=== PATIENT | female | born 1960 | race Caucasian/White ===

== ENCOUNTER 2020-05-29 18:59 | Emergency (ER) | payer BC, OTHER ==
[2020-05-29 19:58] LABS: Absolute Lymphocytes (CBC) 1.8 K/uL (0.7-4.9); Basophils % 0.8 % (0-1.3); Hematocrit 36.9 % (36.0-45.0); Lymphocytes % 22.1 % (15.3-44.8); MPV 7.4 fL (7.6-11.3); RBC Red Blood Cell Count 4.15 M/uL (3.86-4.86)
[2020-05-29 20:00] LABS: ALT/SGPT 20 U/L (12-78); AST/SGOT 26 U/L (15-37); Albumin 3.4 g/dL (3.4-5.0); Alkaline Phosphatase 93 U/L (45-117); BUN Blood Urea Nitrogen 7 mg/dL (7-18); Bicarbonate 22 mmol/L (21-32); Bilirubin Direct < 0.1 mg/dL (0-0.2); Bilirubin Total 0.4 mg/dL (0.2-1.0); Glucose Level 85 mg/dL (74-106); Magnesium 1.9 mg/dL (1.8-2.4); NT PRO-BNP 110 pg/mL (<125); Potassium 3.7 mmol/L (3.5-5.1); Protein, Total 7.9 g/dL (6.4-8.2); Sodium Level 129 mmol/L (136-145); Troponin (Emerg Dept Use Only) < 0.02 ng/mL (0.0-0.045)
[2020-05-29 20:14] LABS: Urine Blood NEGATIVE (NEG); Urine Glucose NEGATIVE (NEG); Urine Protein NEGATIVE (NEG); Urine Specific Gravity 1.015 (1.005-1.030)
--- NOTE | 2020-05-29 20:35 | RAD REPORT ---
EXAM DESCRIPTION: CT - Head Brain Wo Cont - 05/29/2020 8:12 pm CLINICAL HISTORY: Left-sided weakness COMPARISON: None TECHNIQUE: Computed axial tomography of the head was obtained. IV contrast was not requested. All CT scans are performed using dose optimization technique as appropriate and may include automated exposure control or mA/KV adjustment according to patient size. FINDINGS: A 16 millimeter isodense structure is present within the region of the left internal capsu le. There is a large amount of surrounding vasogenic edema which extends into the left aspect of the midbrain. Shift of midline structures 6 millimeters to the right is present. No hydrocephalus. No intracranial bleed Fluid within the sinuses/ mastoids is not seen. IMPRESSION: 16 millimeter isodense structure left internal capsule suspicious for neoplasm. A lung m etastasis is considered most likely. There is a large amount of surrounding vasogenic edema with shif t of the midline structures 6 millimeters to the right Further evaluation with an enhanced MRI is recommended.
[2020-05-29] MEDS ORDERED: LEVETIRACETAM 500 MG/5 ML VIAL IV ONE (21:06)
[2020-05-29] MEDS ORDERED: dexAMETHasone 10 MG/ML VIAL ONE (21:06)
[2020-05-29] MEDS ORDERED: NA CHLORIDE 0.9% 250 ML ONE (21:06)
--- NOTE | 2020-05-29 21:09 | RAD REPORT ---
EXAM DESCRIPTION: Ana Single View05/29/2020 8:11 pm CLINICAL HISTORY: sob COMPARISON: none FINDINGS: A 2 centimeter right basilar opacity The left lung appears clear of acute infiltrate. The heart is normal size IMPRESSION: 8 centimeter right basilar opacity probably a mass such as bronchogenic carcinoma. Less likely this represents pneumonia and can be followed on subsequent imaging
--- NOTE | 2020-05-29 21:58 | ER ---
Nurse's Notes [facility] Name: Emily Ly Age: 60 yrs Sex: Female : 1960 Arrival Date: 05/29/2020 Time: 19:00 Bed 24 Private MD: Diagnosis: Cerebral edema;Lung mass Presentation: 05/29 19:01 Chief complaint: Patient states: "It started a few weeks ago. I just feel weak.". ss Coronavirus screen: Client denies travel out of the [place] in the last 14 days. At this time, the client does not indicate any symptoms associated with coronavirus-19. Ebola Screen: Patient denies exposure to infectious person. Patient denies travel to an Ebola-affected area in the 21 days before illness onset. Initial Sepsis Screen: Does the patient meet any 2 criteria? No. Patient's initial sepsis screen is negative. Does the patient have a suspected source of infection? No. Patient's initial sepsis screen is negative. Risk Assessment: Do you want to hurt yourself or someone else? Patient reports no desire to harm self or others. Onset of symptoms is unknown. 19:01 Method Of Arrival: Ambulatory ss 19:01 Acuity: DIOGO 3 ss Historical: - Allergies: 19:02 No Known Allergies; ss - Home Meds: 19:02 None [Active]; ss - PMHx: 19:02 Hypertension; ss - Immunization history:: Adult Immunizations up to date. - Social history:: Smoking status: Patient reports the use of cigarette tobacco products, smokes two packs cigarettes per day. Screenin:05 Fall Risk IV access (20 points). Total Ramos Fall Scale indicates No Risk (0-24 pts). rr5 20:07 Abuse screen: Denies threats or abuse. Denies injuries from another. Nutritional rr5 screening: No deficits noted. Tuberculosis screening: No symptoms or risk factors identified. Assessment: 19:15 General: Appears in no apparent distress. uncomfortable, Behavior is calm, cooperative, rr5 appropriate for age. 19:15 Pain: Denies pain. Neuro: Level of Consciousness is awake, alert, obeys commands, rr5 Oriented to person, place, time, situation, Food Mixer Assembler are equal bilaterally Moves all extremities. Full function Gait is steady, Speech is normal, Pupils are PERRLA, mild right side facial droop. Reports weakness in right arm generalized body weakness specially on the right. Cardiovascular: Capillary refill < 3 seconds Patient's skin is warm and dry. Respiratory: Airway is patent Respiratory effort is even, unlabored, Respiratory pattern is regular, symmetrical. GI: No signs and/or symptoms were reported involving the gastrointestinal system. : No signs and/or symptoms were reported regarding the genitourinary system. EENT: No signs and/or symptoms were reported regarding the EENT system. Derm: Skin is intact, is healthy with good turgor, Skin temperature is warm. Musculoskeletal: Capillary refill < 3 seconds, Reports weakness in general body weakness. 20:00 Reassessment: patient found on the ground sitting position urine all over the floor. as rr5 verbalized by the patient she wants to pee. GCS 15/15, no open wound noted. ED provider informed with order made and carried out. 20:26 Reassessment: Patient appears in no apparent distress at this time. Patient is alert, rr5 oriented x 3, equal unlabored respirations, skin warm/dry/pink. awaiting for CT result. 21:14 Reassessment: Patient appears in no apparent distress at this time. Patient is alert, rr5 oriented x 3, equal unlabored respirations, skin warm/dry/pink. ED provider reassess and talked to patient and family member for the plan of care and results of the work up. 22:35 Reassessment: Patient appears in no apparent distress at this time. Patient is alert, rr5 oriented x 3, equal unlabored respirations, skin warm/dry/pink. awaiting for acceptance from [facility]. call made they responded to call back after 15 minutes. 23:17 Reassessment: Patient appears in no apparent distress at this time. Patient is alert, rr5 oriented x 3, equal unlabored respirations, skin warm/dry/pink. endorsed to [facility] awake alert vitally stable, no complaints made. Vital Signs: 19:02 Pulse 86; Resp 16; Temp 98.1(O); Pulse Ox 96% on R/A; Weight 62.6 kg; Height 5 ft. 6 ss in. (167.64 cm); Pain 0/10; 19:04 BP 190 / 106; ss 19:20 BP 161 / 99; Pulse 77; Resp 16; Pulse Ox 100% ; rr5 20:00 BP 174 / 104; Pulse 87; Resp 19; Pulse Ox 100% ; rr5 21:15 BP 161 / 96; Pulse 82; Resp 17; Pulse Ox 97% ; rr5 21:58 BP 160 / 89; Pulse 77; Resp 19; Temp 98; Pulse Ox 99% ; rr5 23:17 BP 135 / 86; Pulse 70; Resp 16; Pulse Ox 99% ; rr5 19:02 Body Mass Index 22.27 (62.60 kg, 167.64 cm) ss Erik Coma Score: 19:20 Eye Response: spontaneous(4). Verbal Response: oriented(5). Motor Response: obeys rr5 commands(6). Total: 15. 20:00 Eye Response: spontaneous(4). Verbal Response: oriented(5). Motor Response: obeys rr5 commands(6). Total: 15. 21:15 Eye Response: spontaneous(4). Verbal Response: oriented(5). Motor Response: obeys rr5 commands(6). Total: 15. 22:04 Eye Response: spontaneous(4). Verbal Response: oriented(5). Motor Response: obeys rr5 commands(6). Total: 15. 23:17 Eye Response: spontaneous(4). Verbal Response: oriented(5). Motor Response: obeys rr5 commands(6). Total: 15. ED Course: 19:00 Patient arrived in ED. ss 19:02 Triage completed. ss 19:02 Arm band placed on right wrist. ss 19:18 Sam Ramirez, RN is Primary Nurse. rr5 19:20 Patient has correct armband on for positive identification. Placed in gown. Bed in low rr5 position. Call light in reach. Side rails up X2. telemetry monitor on. Pulse ox on. NIBP on. 19:20 Inserted saline lock: 20 gauge in left forearm, using aseptic technique. Blood rr5 collected. 19:21 Paulino Thomas MD is Attending Physician. tw4 19:40 EKG done, by ED staff, reviewed by Paulino Thomas MD. rr5 20:11 XRAY Chest (1 view) In Process Unspecified. EDMS 20:12 CT Head Brain wo Cont In Process Unspecified. EDMS 21:00 Initiated transfer with Ying Sung at [facility]. Ying also spoke with Dr. betty Thomas regarding the patients diagnosis. 21:36 Ying Sung called back with their Neuro Melon Packer on the line to speak to Dr. betty Thomas. 21:48 Dr. Rees called to consult with Dr. Thomas regarding the patients case. tt3 22:09 Ying Sung RN, gave admin approval. The patient is going to [facility] Room tt3 [id number]. The patient is to go to the ER to register then will be directed to the room. Dr. Bond is the accepting physician. Report to be called to . Face sheet faxed to per Ying Sung' request. 23:18 No provider procedures requiring assistance completed. Patient transferred, IV remains rr5 in place. intact, No redness/swelling at site. Administered Medications: 21:05 Drug: Decadron - Dexamethasone 10 mg Route: IVP; Site: left forearm; rr5 22:05 Follow up: Response: No adverse reaction rr5 21:06 Drug: Keppra 1000 mg Route: IV; Rate: calculated rate; Site: left forearm; rr5 22:00 Follow up: Response: No adverse reaction; IV Status: Completed infusion rr5 Output: 19:45 Urine: 300ml (Voided); Total: 300ml. rr5 20:40 Urine: 250ml (Voided); Total: 550ml. rr5 21:32 Urine: 300ml (Voided); Total: 850ml. rr5 22:04 Urine: 200ml (Voided); Total: 1050ml. rr5 Outcome: 21:58 ER care complete, transfer ordered by . tw4 23:18 Transferred by ground EMS to [facility], Transfer form completed. rr5 23:18 Condition: stable 23:18 Instructed on the need for transfer. 23:19 Patient left the ED. rr5 Signatures: Dispatcher [employer] EDToyin Lozano RN RN ss Wadley, Terrence, MD MD tw4 Sam Ramirez RN RN rr5 Eduardo Cameron tt3 Corrections: (The following items were deleted from the chart) 20:26 19:40 Reassessment: patient found on the ground sitting position urine all over the rr5 floor. as verbalized by the patient she wants to pee. GCS , no open wound noted. ED provider informed rr5
--- NOTE | 2020-05-29 21:59 | EDPHYS ---
Physician Documentation [facility] Name: Emily Ly Age: 60 yrs Sex: Female : 1960 Arrival Date: 05/29/2020 Time: 19:00 Bed 24 Private MD: ED Physician Paulino Thomas HPI: 05/29 21:00 This 60 yrs old Female presents to ER via Ambulatory with complaints of tw4 General Weakness. Historical: - Allergies: 19:02 No Known Allergies; ss - Home Meds: 19:02 None [Active]; ss - PMHx: 19:02 Hypertension; ss - Immunization history:: Adult Immunizations up to date. - Social history:: Smoking status: Patient reports the use of cigarette tobacco products, smokes two packs cigarettes per day. ROS: 22:05 Constitutional: Negative for fever, chills, and weight loss, Eyes: Negative for injury, tw4 pain, redness, and discharge, Cardiovascular: Negative for chest pain, palpitations, and edema, Respiratory: Negative for shortness of breath, cough, wheezing, and pleuritic chest pain, Abdomen/GI: Negative for abdominal pain, nausea, vomiting, diarrhea, and constipation, Back: Negative for injury and pain, MS/Extremity: Negative for injury and deformity, Skin: Negative for injury, rash, and discoloration. Exam: 22:09 Radiologist reports: cerebral edema with midline shift tw4 22:09 Constitutional: This is a well developed, well nourished patient who is awake, alert, and in no acute distress. Head/Face: Normocephalic, atraumatic. Chest/axilla: Normal chest wall appearance and motion. Nontender with no deformity. No lesions are appreciated. Cardiovascular: Regular rate and rhythm with a normal S1 and S2. No gallops, murmurs, or rubs. Normal PMI, no JVD. No pulse deficits. Respiratory: Lungs have equal breath sounds bilaterally, clear to auscultation and percussion. No rales, rhonchi or wheezes noted. No increased work of breathing, no retractions or nasal flaring. Abdomen/GI: Soft, non-tender, with normal bowel sounds. No distension or tympany. No guarding or rebound. No evidence of tenderness throughout. 22:09 Skin: Warm, dry with normal turgor. Normal color with no rashes, no lesions, and no evidence of cellulitis. MS/ Extremity: Pulses equal, no cyanosis. Neurovascular intact. Full, normal range of motion. Neuro: Awake and alert, GCS 15, oriented to person, place, time, and situation. Cranial nerves II-XII grossly intact. Motor strength 5/5 in all extremities. Sensory grossly intact. Cerebellar exam normal. Normal gait. 22:09 Constitutional: The patient appears in no acute distress. 22:09 Head/face: Noted is Vital Signs: 19:02 Pulse 86; Resp 16; Temp 98.1(O); Pulse Ox 96% on R/A; Weight 62.6 kg; Height 5 ft. 6 ss in. (167.64 cm); Pain 0/10; 19:04 BP 190 / 106; ss 19:20 BP 161 / 99; Pulse 77; Resp 16; Pulse Ox 100% ; rr5 20:00 BP 174 / 104; Pulse 87; Resp 19; Pulse Ox 100% ; rr5 21:15 BP 161 / 96; Pulse 82; Resp 17; Pulse Ox 97% ; rr5 21:58 BP 160 / 89; Pulse 77; Resp 19; Temp 98; Pulse Ox 99% ; rr5 23:17 BP 135 / 86; Pulse 70; Resp 16; Pulse Ox 99% ; rr5 19:02 Body Mass Index 22.27 (62.60 kg, 167.64 cm) [place] Coma Score: 19:20 Eye Response: spontaneous(4). Verbal Response: oriented(5). Motor Response: obeys rr5 commands(6). Total: 15. 20:00 Eye Response: spontaneous(4). Verbal Response: oriented(5). Motor Response: obeys rr5 commands(6). Total: 15. 21:15 Eye Response: spontaneous(4). Verbal Response: oriented(5). Motor Response: obeys rr5 commands(6). Total: 15. 22:04 Eye Response: spontaneous(4). Verbal Response: oriented(5). Motor Response: obeys rr5 commands(6). Total: 15. 23:17 Eye Response: spontaneous(4). Verbal Response: oriented(5). Motor Response: obeys rr5 commands(6). Total: 15. MDM: 19:21 Patient medically screened. tw4 22:11 Differential diagnosis: CVA, TIA. Data reviewed: vital signs, nurses notes. Data tw4 reviewed: lab test result(s), CBC, electrolytes, hepatic panel. Data interpreted: Pulse oximetry:. Counseling: I had a detailed discussion with the patient and/or guardian regarding: the historical points, exam findings, and any diagnostic results supporting the discharge/admit diagnosis. 22:48 ED course: D/W Dr Crawford who agrees to accept the patient for transfer. D/W Dr [email or web address] Varun hospitalist that agrees with treatment plan and transfer. 05/29 19:28 Order name: Basic Metabolic Panel; Complete Time: 21:41 tw4 05/29 22:03 Interpretation: Normal except: NA 129; CL 96. tw4 05/29 19:28 Order name: CBC with Diff; Complete Time: 21:41 tw4 05/29 19:28 Order name: LFT's; Complete Time: 21:41 tw4 05/29 19:28 Order name: Magnesium; Complete Time: 21:41 tw4 05/29 19:28 Order name: NT PRO-BNP; Complete Time: 21:41 tw4 05/29 19:28 Order name: PT-INR; Complete Time: 21:41 tw4 05/29 19:28 Order name: Troponin (emerg Dept Use Only); Complete Time: 21:41 tw4 05/29 19:28 Order name: XRAY Chest (1 view); Complete Time: 21:41 tw4 05/29 19:28 Order name: EKG; Complete Time: 19:28 tw4 05/29 19:41 Order name: Glucose, Ancillary Testing; Complete Time: 21:41 EDMS 05/29 19:49 Order name: CT Head Brain wo Cont; Complete Time: 20:51 tw4 05/29 20:05 Order name: Urine Dipstick--Ancillary (enter results); Complete Time: 21:41 tt3 05/29 19:28 Order name: Cardiac monitoring; Complete Time: 20:10 tw4 05/29 19:28 Order name: EKG - Nurse/Tech; Complete Time: 20:11 tw4 05/29 19:28 Order name: IV Saline Lock; Complete Time: 20:10 tw4 05/29 19:28 Order name: Labs collected and sent; Complete Time: 20:10 tw4 05/29 19:28 Order name: O2 Per Protocol; Complete Time: 20:10 tw4 05/29 19:28 Order name: O2 Sat Monitoring; Complete Time: 20:10 tw4 EC/03 04:20 Rate is 86 beats/min. Rhythm is regular. QRS [place] is Normal. [place] interval is normal. QRS tw4 interval is normal. QT interval is normal. No Q waves. T waves are Normal. No ST changes noted. Clinical impression: NSR w/ Non-specific ST/T Changes. Interpreted by me. Reviewed by me. Administered Medications: 05/29 21:05 Drug: Decadron - Dexamethasone 10 mg Route: IVP; Site: left forearm; rr5 22:05 Follow up: Response: No adverse reaction rr5 21:06 Drug: Keppra 1000 mg Route: IV; Rate: calculated rate; Site: left forearm; rr5 22:00 Follow up: Response: No adverse reaction; IV Status: Completed infusion rr5 Disposition: 05/29/20 21:58 Transfer ordered to [facility]. Diagnosis are Cerebral edema, Lung mass. - Reason for transfer: Higher level of care. - Accepting physician is Dr Bond. - Condition is Stable. - Problem is new. - Symptoms have improved. Signatures: Dispatcher [employer] Toyin Jones RN RN Paulino Thomas MD MD tw4 Sam Ramirez RN RN rr5 Corrections: (The following items were deleted from the chart) 22:05 21:58 05/29/2020 21:58 Transfer ordered to [facility]. tw4 Diagnosis is Cerebral edema; Lung mass. Reason for transfer: Higher level of care. Accepting physician is Dr Crawford. Condition is Stable. Problem is new. Symptoms have improved. tw4 23:19 22:05 05/29/2020 21:58 Transfer ordered to [facility]. rr5 Diagnosis is Cerebral edema; Lung mass. Reason for transfer: Higher level of care. Accepting physician is Dr Bond. Condition is Stable. Problem is new. Symptoms have improved. tw4
[2020-05-29 23:43] VITALS: TEMP 98; O2SAT 99
[2020-05-29 23:44] VITALS: BP 135/86
== END 2020-05-29 23:19 | disposition short-term general hospital (02) ==
LOC: ER 18:59
DX: G93.6 Cerebral edema (principal); R91.8 Other nonspecific abnormal finding of lung field; I10 Essential (primary) hypertension; F17.210 Nicotine dependence, cigarettes, uncomplicated
CPT/HCPCS: 96365; 93005; 85025; 80048; 36415; 83735; 85610; 82947; 80076; 81003; 84484; 83880; 70450; 71045; 96375; 99285; J1100; J1953; J7050

== ENCOUNTER 2022-04-12 16:10 | Emergency (ER) | payer BC ==
--- OUTSIDE RECORDS SUMMARY | 2022-04-12 16:16 | XMS REPORT | Continuity of Care Document ---
:1960 Author Organization [facility] t Address [address] [place] [address] [address] [place] [address] Care Team Providers Name Role Phone [phone] Primary Care Physician Unavailable SYSTEM, NOT IN Attending Clinician Unavailable CARLO LARA Attending Clinician Unavailable Aj JONES V. Attending Clinician Severiano MUNROE, J Attending Clinician Unavailable Zack Sams MD Attending Clinician Shaun BOLANOS EAidan Attending Clinician Javon MUNROE, S Attending Clinician Unavailable Alex LUQUE Attending Clinician Jeffrey JONES PhD, H Attending Clinician Lino MUNROE, M Attending Clinician ALEX Attending Clinician Unavailable Saranya MUNROE Attending Clinician Raf ROCHA Attending Clinician Unavailable Jose Main Attending Clinician Zack SAMS Attending Clinician Unavailable Arturo MUNROE, B Attending Clinician Unavailable Jayda JONES Attending Clinician Matthias JONES Attending Clinician Yue Gauthier RN Attending Clinician Unavailable Vin JONES Attending Clinician JEFFREY, H Attending Clinician Unavailable Severiano RN, A Attending Clinician Unavailable Mary JONES Attending Clinician Abbe MUNROE, A Attending Clinician Rani Main, J Attending Clinician Unavailable Andra MUNROE, R Attending Clinician Unavailable Mandie RN, A Attending Clinician Unavailable Donis Main Attending Clinician Amber RN, G Attending Clinician Unavailable Delilah JANG Attending Clinician César MICHAEL Attending Clinician Unavailable Fernanda [employer], M Attending Clinician Audrey FLYNN Attending Clinician Unavailable Beti MUNROE, E Attending Clinician Unavailable César OVALLE Attending Clinician Unavailable Manuel JANG, M Attending Clinician Dain JONES Attending Clinician Unavailable Lon RN, A Attending Clinician Unavailable Ok RN, D Attending Clinician MUNA Attending Clinician Unavailable Muna JONES Attending Clinician Solitario JONES Attending Clinician Unavailable Tejinder RN, L Attending Clinician Unavailable Danny YOUSSEF Attending Clinician Provider, Urgent Care Attending Clinician Unavailable DANNY Attending Clinician Unavailable Doctor Unassigned, Name Attending Clinician Unavailable CARLO LARA Admitting Clinician Unavailable Payers Payer Name Policy Type Policy Number Effective Date Expiration Date [place] [id number] 2017 00:00:00 BCBS PPO POS EPO [id number] CHOICE Problems Condition Condition Condition Status Onset Resolution Last Treating Co mments Source Name Details Category Date Date Treatment Clinician Date Carpal Carpal Disease Active Univers tunnel tunnel 3-25 ity of syndrome syndrome 00:00: [place] of left of left 00 upper limb upper limb An derso [facility] 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 Latia [facility] Center 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:00: [place] of brain of brain 00 MD Jeffery [facility] Center Essential Essential Disease Active Uni vers (primary) (primary) 06-17 it[place] of hypertensi hypertens[place] [facility] [place] Mass Disease Active Univers lesion of lesion of 05-30 ity of brain brain 00:00: [place] 00 MD [facility] No known No known Disease Unive rs active active ity of problems problems [facility] Allergies, Adverse Reactions, Alerts Allergy Allergy Status Severity Reaction(s) Onset Inactive Treating Comm ents Source Name Type Date Date Clinician NO KNOWN Allergy [facility] NO KNOWN Drug Active Univers ALLERGIE Class ity of S [facility] Family History Family Member Diagnosis Comments Start Date Stop Date Source Niece Other [facility] Paternal aunt Lung cancer [facility] Natural sister Breast cancer [facility] Natural sister Kidney disease Univer sity of [facility] Social History Social Habit Start Date Stop Date Quantity Comments Source History [facility]NJ University o f Alcohol Frequency [facility] History [facility] University o f Alcohol Std Drinks [facility] History [facility] o f Alcohol Binge [place] [facility] Exposure to 2022-04-01 2022-04-11 Not sure University of SARS-CoV-2 (event) 00:00:00 10:55:00 [facility] Alcohol intake 2022-04-11 2022-04-11 Ex-drinker University of 00:00:00 00:00:00 (finding) [place] MD [facility] [facility] [place] Cigarettes smoked 2020-06-17 2020-06-17 Univers ity of current (pack per 00:00:00 00:00:00 [facility] ) - Reported Cancer Ce nter Cigarette 2020-06-17 2020-06-17 University of pack-years 00:00:00 00:00:00 [place] MD [place] Tobacco use and 2020-06-17 2020-06-17 Smokeless Universit y of exposure 00:00:00 00:00:00 tobacco non-user [facility] History SDOH 2020-06-17 2020-06-17 "social drinker" Univer sity of Alcohol Comment 00:00:00 00:00:00 [facility] Tobacco Comment 2020-06-17 2020-06-17 Quit instantly Unive rsity of 00:00:00 00:00:00 on 05/29/20 [place] MD [place] History of tobacco 1972-02-15 2020-05-29 Current smoker Un iversity of use 00:00:00 00:00:00 [place] MD [place] Sex [birth year] At [birth year] Universit y of 00:00:00 00:00:00 [facility] Smoking Status Start Date Stop Date Source Unknown if ever smoked [facility] Ex-smoker 2020-06-17 00:00:00 2020-06-17 00:00:00 [facility] Medications Ordered Filled Start Stop Current Ordering Indication Dosage Frequency Signature Comments Components Source Medication Medication Date Date Medication? Clinician (SIG) Name Name acetaminoph Yes 500mg Take 500 U nivers en 6-15 mg by ity of (TYLENOL) 12:33: mouth [place] 500 mg 31 every 4 MD tablet (four) Anderso hours as n needed for Cancer mild pain. Center HYDROcodone Yes 1{tbl} Take 1 Un damián -acetaminop 6-15 tablet by ity of hen (NORCO) 12:33: mouth [place] 5 mg-325 mg 31 every 6 MD per tablet (six) Anderso hours as n needed for Cancer moderate Center pain. ibuprofen Yes 600mg Take 600 Uni vers (ADVIL,MOTR 6-15 mg by ity of IN) 600 mg 12:33: mouth [place] tablet 31 every 6 MD (six) Anderso hours as n needed for Cancer mild pain Center or moderate pain. vit A/vit 2021- No 1{tbl} Take 1 Uni vers C/biotin/zi 12-06 tablet by it y of nc/copper 10:54: 00:00 mouth [place] (HAIR-SKIN- 53 :00 daily. 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 Anderso TAKES IT n WHEN ON Cancer STEROIDS [place] dexamethaso 2021- No Adenocarcin 4mg TAKE 1 Univers ne 07-1309 marilee of TABLET (4 ity of (DECADRON) 00:00: 00:00 lower lobe MG) BY [place] 4 mg tablet 00 :00 of right MOUTH lung TWICE Andersalexis DAILY. n TAKE ON Cancer DAYS 2 TO Center 4 OF EACH CHEMOTHERA PY CYCLE. furosemide 2021- No Edema, not TAKE 1 Univers (LASIX) 20 07-10 otherwise TABLET BY ity of mg tablet 00:00: 00:00 specified MOUTH [place] 00 :00 EVERY DAY MD NEEDED [place] FOR EDEMA n [place] gabapentin Yes Neuropathy, 300mg Take 1 Univers (NEURONTIN) 06-28 not capsule ity o f 300 mg 00:00: otherwise (300 mg[place] capsule 00 specified by mouth MD at Anderso bedtime. n [place] potassium 2020- No Hypokalemia 20meq Take 1 Univers chloride 06-28 tablet (20 ity of (Klor-Con 00:00: 00:00 mEq) by Suraj cortes M20) 20 mEq 00 :00 mouth tablet daily. Andbeatriz n [place] omeprazole 2020- No Adenocarcin 40mg Take 1 Univers (PriLOSEC) 06-23 11-29 marilee of capsule ity of 40 MG 00:00: 00:00 lower lobe (40 mg) by [place] capsule 00 :00 of right mouth lung daily. Anderso Takes it n when on Cancer steroids Center potassium 2020- No Hypokalemia 20meq Take 1 Univers chloride 05-31 tablet (20 ity of (Klor-Con 00:00: 00:00 mEq) by Suraj cortes M20) 20 mEq 00 :00 mouth MD tablet daily. Anderso n Cancer Center gabapentin 2020- No Neuropathy, 300mg Take 1 Univers (NEURONTIN) 05-10 not capsule ity of 300 mg 00:00: 00:00 otherwise (300 mg) [place] capsule 00 :00 specified by mouth MD at Anderso bedtime. n Cancer Center gabapentin 2020- No Neuropathic 100mg Take 1 Univers (Neurontin) 04-2810 pain capsule ity of 100 mg 00:00: 04:59 (100 mg) [place] capsule 00 :00 by mouth 3 MD (three) Anderso times a n day for 7 Cancer days. Center HYDROcodone 2020- No Neuropathic 1{tbl} Take 1 Univers -acetaminop 04-2806 pain tablet by it y of hen ([place]) 00:00: 04:59 mouth Suraj cortes 5 mg-325 mg 00 :00 every 8 MD per tablet (eight) Ron o hours as n needed for Cancer moderate Center pain for up to 3 days. dexamethaso 2020- No Adenocarcin 4mg Take 1 Univers ne 04-20 09-16 marilee of tablet (4 ity of (DECADRON) 00:00: 00:00 lower lobe mg) by [place] 4 mg tablet 00 :00 of right mouth lung twice Anderso daily. n Take on Cancer days 2 to Center 4 of each chemothera py cycle. furosemide 2020- No edema 20mg Take 1 Uni vers (LASIX) 20 6 09-13 tablet (20 it y of mg tablet 00:00: 00:00 mg) by [place] 00 :00 mouth as MD directed. Anderso Take 1 n tablet PO Cancer as needed Center for edema. furosemide 2020- No Edema, not Take 1 Univers (LASIX) 20 12-06 06-18 otherwise tablet PO ity of mg tablet 00:00: 00:00 specified every-othe [place] 00 :00 r-day as MD needed for Anderso edema. n [facility] Center amLODIPine 2019-10- No Essential 5mg Take 1 Univers (Norvasc) 5 0-12 (primary) tablet (5 ity of mg tablet 00:00: 00:00 hypertensio mg) by [place] 00 :00 n mouth MD daily. [facility] folic acid Yes Adenocarcin 400ug Take 1 Univers (FOLVITE) 07-27 marilee of tablet ity of 400 mcg 00:00: lower lobe (400 mcg) [place] tablet 00 of right by mouth MD lung daily. [facility] ondansetron 2021- No Adenocarcin 8mg Take 1 Univers (Zofran) 8 07-27 marilee of tablet (8 i ty of mg tablet 00:00: 00:00 lower lobe mg) by [place] 00 :00 of right mouth MD lung every 8 Anderso (eight) n hours as Cancer needed for Center nausea or vomiting. dexamethaso 2020- No Adenocarcin 4mg Take 1 Univers ne 07-27 06-24 marilee of tablet (4 ity of (DECADRON) 00:00: 00:00 lower lobe mg) by [place] 4 mg tablet 00 :00 of right mouth MD lung twice Anderso daily. n Take on Cancer days 2 to Center 4 of each chemothera py cycle. zolpidem 2021- No Adenocarcin 5mg Take 1 Univers (Ambien) 5 06-17 marilee of tablet (5 i ty of mg tablet 00:00: 00:00 lower lobe mg) by [place] 00 :00 of right mouth lung nightly as Anderso needed for n sleep. [place] omeprazole 2020- No Adenocarcin 40mg Take 1 Univers (PriLOSEC) 06-17 marilee of capsule ity of 40 MG 00:00: 00:00 lower lobe (40 mg) by [place] capsule 00 :00 of right mouth lung daily. [facility] therapeutic 2020- No 1{tbl} Take 1 U nivers multivitami 06-02 tablet by it y of n (THEREMS) 00:00: 04:59 [place] tablet 00 :00 daily. MD Latia lorenzana [place] thiamine 2020- 100mg Take 100 Uni vers (VITAMIN 8- 08-07 mg by ity of B-1) 100 mg 00:00: 04:59 [place] tablet 00 :00 daily. MD Latia lorenzana [place] No known No [facility] No known No [facility] Immunizations Ordered Filled Immunization Date Status Comments [facility] e Immunization Name Name Pfizer SARS-CoV-2 2021-11-16 Completed Univers ity of Vaccination 00:00:00 [place] MD Hair [facility] Influenza, 2021-09-06 Completed University of Quadrivalent 00:00:00 [place] JONES [facility] [place] SARS-CoV-2 2021-01-14 Completed Univers ity of Vaccination 00:00:00 [place] Hair marylou [facility] SARS-CoV-2 2020-12-23 Completed Univers ity of Vaccination 00:00:00 [place] Hair marylou [place] Influenza, 2020-07-28 Completed University of Quadrivalent 00:00:00 [place] [facility] Vital Signs Vital Name Observation Time Observation Value Comments Source HEIGHT 2020-05-29 00:00:00 167.6 cm WEIGHT 2020-05-29 00:00:00 60.963 kg Systolic blood 2021-01-15 14:53:00 135 mm[Hg] Univ sity of pressure [facility] Diastolic blood 2021-01-15 14:53:00 77 mm[Hg] [facility] Heart rate 2021-01-15 14:53:00 53 /min [facility] Body temperature 2021-01-15 14:53:00 36.67 Courtney [facility] Respiratory rate 2021-01-15 14:53:00 18 /min [facility] Body height 2021-01-15 14:53:00 167.6 cm [facility] Body weight 2021-01-15 14:53:00 74.844 kg [facility] BMI 2021-01-15 14:53:00 26.63 kg/m2 [facility] Oxygen saturation in 2021-01-15 14:53:00 95 /min University of Arterial blood by [place] Roe [facility] Pulse oximetry [place] HEIGHT 2020-06-17 12:00:00 167.5 cm WEIGHT 2020-06-17 12:00:00 66 kg HEIGHT 2020-05-29 00:00:00 167.6 cm WEIGHT 2020-05-29 00:00:00 60.963 kg Systolic blood 2022-04-11 18:29:46 159 mm[Hg] Univer sity of pressure [place] MD Velasquez [facility] Diastolic blood 2022-04-11 18:29:46 79 mm[Hg] Unive rsity of pressure [place] MD Vel[facility] Heart rate 2022-04-11 18:29:46 66 /min Universi ty of [place] MD Vel[facility] Body temperature 2022-04-11 18:29:46 36.72 Courtney [facility] ersity of [place] MD Velasquez on [facility] Center Respiratory rate 2022-04-11 18:29:46 20 /min Univ ersity of [place] MD Velasquez on [facility] Body weight 2022-04-11 18:29:46 72 kg Universi ty of [place] MD Velasquez on [facility] BMI 2022-04-11 18:29:46 24.34 kg/m2 Universi ty of [place] MD Velasquez on [facility] Oxygen saturation in 2022-04-11 18:29:46 95 /min University of Arterial blood by [place] reese Pulse oximetry Cancer Center Body height 2021-09-05 20:12:00 172 cm Universi ty of [place] MD Velasquez on [facility] Procedures Procedure Date / Time Performing Clinician Source Performed COMPLETE BLOOD COUNT W/ 2022-04-11 15:33:00 [facility] [place] [facility] Center COMPREHENSIVE METABOLIC 2022-04-11 15:33:00 Enrique [facility]. [facility] PAN[facility] Center MAGNESIUM LEVEL 2022-04-11 15:33:00 Enrique Rochait y of [facility] Center THYROID STIMULATING 2022-04-11 15:33:00 Enrique Rocha V. Unive rsity of [place] HORMONE [facility] Center FREE THYROXINE 2022-04-11 15:33:00 Fossella, Enrique V. [facility] Results CBC 2022-04-11 15:33:00 Enrique Rocha V. [facility] MANUAL DIFFERENTIAL 2022-04-11 15:33:00 Enrique Rocha V. [facility] GLUCOSE LEVEL 2022-04-11 15:33:00 Enrique Rocha V. [facility] BLOOD UREA NITROGEN 2022-04-11 15:33:00 Enrique Rocha V. [facility] ELECTROLYTE PANEL 2022-04-11 15:33:00 Enrique Rocha V. [facility] SERUM CREATININE 2022-04-11 15:33:00 Enrique Rocha V. [facility] .GLOMERULAR FILTRATION 2022-04-11 15:33:00 Enrique Rocha V. [facility] RATE [facility] CALCIUM LEVEL TOTAL 2022-04-11 15:33:00 Enrique Rocha V. [facility] ALBUMIN LEVEL 2022-04-11 15:33:00 Enrique Rocha V. [facility] ALKALINE PHOSPHATASE 2022-04-11 15:33:00 Enrique Rocha V. [facility] ALANINE AMINOTRANSFERASE 2022-04-11 15:33:00 Enrique Rocha V. [facility] ASPARTATE AMINOTRANSFERASE 2022-04-11 15:33:00 Enrique Rocha [facility] TOTAL PROTEIN 2022-04-11 15:33:00 Enrique Rocha V. [facility] FRACTIONATED BILIRUBIN 2022-04-11 15:33:00 [facility]LO[facility] W/ 2022-03-21 14:13:00 [facility] DI[facility] COMPREHENSIVE METABOLIC 2022-03-21 14:13:00 Enrique Rocha V. U [facility] PANEL [facility] MAGNESIUM LEVEL 2022-03-21 14:13:00 Enrique Rocha V. [facility] THYROID STIMULATING 2022-03-21 14:13:00 Enrique Rocha V. [facility] HORMONE [facility] FREE THYROXINE 2022-03-21 14:13:00 Enrique Rocha V. [facility] Results CBC 2022-03-21 14:13:00 Enrique Rocha V. [facility] MANUAL DIFFERENTIAL 2022-03-21 14:13:00 [facility] GLUCOSE LEVEL 2022-03-21 14:13:00 Enrique Rocha V. [facility] BLOOD UREA NITROGEN 2022-03-21 14:13:00 [facility] ELECTROLYTE PANEL 2022-03-21 14:13:00 Enrique Rocha V. [facility] SERUM CREATININE 2022-03-21 14:13:00 Enrique Rocha ty [facility] .GLOMERULAR FILTRATION 2022-03-21 14:13:00 Enrique Rocha V. [facility] RATE [facility] CALCIUM LEVEL TOTAL 2022-03-21 14:13:00 Enrique [facility] ALBUMIN LEVEL 2022-03-21 14:13:00 Enrique Rocha V. [facility] ALKALINE PHOSPHATASE 2022-03-21 14:13:00 Enrique Rocha V. [facility] ALANINE AMINOTRANSFERASE 2022-03-21 14:13:00 Enrique Rocha V. [facility] ASPARTATE AMINOTRANSFERASE 2022-03-21 14:13:00 Enrique Rocha [facility] TOTAL PROTEIN 2022-03-21 14:13:00 Enrique Rohca V. [facility] FRACTIONATED BILIRUBIN 2022-03-21 14:13:00 Enrique Rocha [facility] MRI BRAIN W WO CONTRAST 2022-02-27 23:12:03 Krystal Johnson [facility] PETCT SUBSEQUENT TREATMENT 2022-02-27 21:22:00 Krystal Johnson [facility] STRATEGY [facility] COMPLETE BLOOD COUNT W/ 2022-02-27 17:24:00 Enrique [facility] DIFFERENTIAL [facility] COMPREHENSIVE METABOLIC 2022-02-27 17:24:00 Enrique [facility]ocha [facility] PANEL [facility] MAGNESIUM LEVEL 2022-02-27 17:24:00 Enrique Rocha V. [facility] THYROID STIMULATING 2022-02-27 17:24:00 Enrique [facility] HORMONE [facility] FREE THYROXINE 2022-02-27 17:24:00 [facility] Results CBC 2022-02-27 17:24:00 Enrique Rocha V. [facility] MANUAL DIFFERENTIAL 2022-02-27 17:24:00 Enrique [facility]ocha [facility] GLUCOSE LEVEL 2022-02-27 17:24:00 [facility] BLOOD UREA NITROGEN 2022-02-27 17:24:00 Enrique [facility] ELECTROLYTE PANEL 2022-02-27 17:24:00 Enrique Rocha ity [facility] SERUM CREATININE 2022-02-27 17:24:00 Enrique Rocha ty [facility] .GLOMERULAR FILTRATION 2022-02-27 17:24:00 En[facility] [place] RATE [facility] CALCIUM LEVEL TOTAL 2022-02-27 17:24:00 Enrique [facility] ALBUMIN LEVEL 2022-02-27 17:24:00 Enrique Rocha V. [facility] ALKALINE PHOSPHATASE 2022-02-27 17:24:00 Enrique Rocha V. [facility] ALANINE AMINOTRANSFERASE 2022-02-27 17:24:00 Enrique Rocha V. [facility] ASPARTATE AMINOTRANSFERASE 2022-02-27 17:24:00 Enrique Rocha [facility] TOTAL PROTEIN 2022-02-27 17:24:00 Enrique Rocha V. [facility] FRACTIONATED BILIRUBIN 2022-02-27 17:24:00 Enrique [facility]ocha [facility]. [facility] COMPLETE BLOOD COUNT W/ 2022-02-07 13:17:00 [facility] DIFFERENTIAL [facility] COMPREHENSIVE METABOLIC 2022-02-07 13:17:00 Krystal Johnson [facility] PANEL [facility] MAGNESIUM LEVEL 2022-02-07 13:17:00 Krystal Johnson [facility] THYROID STIMULATING 2022-02-07 13:17:00 Krystal Johnson [facility] HORMONE [facility] FREE THYROXINE 2022-02-07 13:17:00 Krysatl Johnson [facility] Results CBC 2022-02-07 13:17:00 Krystal Johnson [facility] MANUAL DIFFERENTIAL 2022-02-07 13:17:[address] [facility] GLUCOSE LEVEL 2022-02-07 13:17:00 Krystal Johnson [facility] BLOOD UREA NITROGEN 2022-02-07 13:17:[address] [facility] ELECTROLYTE PANEL 2022-02-07 13:17:00 Krystal Johnson [facility] SERUM CREATININE 2022-02-07 13:17:00 Krystal Johnson [facility] .GLOMERULAR FILTRATION 2022-02-07 13:17:00 Krystal Johnson [facility] RATE [facility] CALCIUM LEVEL TOTAL 2022-02-07 13:17:00 Krystal Johnson sity [facility] ALBUMIN LEVEL 2022-02-07 13:17:00 Krystal Johnson [facility] ALKALINE PHOSPHATASE 2022-02-07 13:17:00 Krystal Johnson [facility] ALANINE AMINOTRANSFERASE 2022-02-07 13:17:00 [facility] ASPARTATE AMINOTRANSFERASE 2022-02-07 13:17:00 Krystal Johnson [facility] TOTAL PROTEIN 2022-02-07 13:17:00 Krystal Johnson [facility] FRACTIONATED BILIRUBIN 2022-02-07 13:17:00 Krystal Johnson [facility] COMPLETE BLOOD COUNT W/ 2022-01-17 11:32:00 Enrique Rocha [facility] DIFFERENTIAL [facility] COMPREHENSIVE METABOLIC 2022-01-17 11:32:00 [facility] PANEL [facility] MAGNESIUM LEVEL 2022-01-17 11:32:00 [facility] THYROID STIMULATING 2022-01-17 11:32:00 Enrique Rocha [facility] HORMONE [facility] FREE THYROXINE 2022-01-17 11:32:00 [facility] Results CBC 2022-01-17 11:32:00 Enrique Rocha V. [facility] MANUAL DIFFERENTIAL 2022-01-17 11:32:00 Enrique Rocha [facility] GLUCOSE LEVEL 2022-01-17 11:32:00 Enrique Rocha V. [facility] BLOOD UREA NITROGEN 2022-01-17 11:32:00 Enrique Rocha V. [facility] ELECTROLYTE PANEL 2022-01-17 11:32:00 Enrique Rocha V. [facility] SERUM CREATININE 2022-01-17 11:32:00 Enrique Rocha V. [facility] .GLOMERULAR FILTRATION 2022-01-17 11:32:00 Enrique [facility]. [facility] RATE [facility] CALCIUM LEVEL TOTAL 2022-01-17 11:32:00 Enrique Rocha V. [facility] ALBUMIN LEVEL 2022-01-17 11:32:00 Enrique Rocha V. [facility] ALKALINE PHOSPHATASE 2022-01-17 11:32:00 Enrique Rocha V. [facility] ALANINE AMINOTRANSFERASE 2022-01-17 11:32:00 Enrique Rocha V. [facility] ASPARTATE AMINOTRANSFERASE 2022-01-17 11:32:00 Enrique Rocha [facility] TOTAL PROTEIN 2022-01-17 11:32:00 Enrique Rocha V. [facility] FRACTIONATED BILIRUBIN 2022-01-17 11:32:00 [facility] 3 VIEWS MINIMUM 2021-12-27 18:36:45 Krystal Johnson [facility] LEFT [facility] COMPLETE BLOOD COUNT W/ 2021-12-27 16:07:00 Enrique Rocha V. [facility] DIFFERENTIAL [facility] COMPREHENSIVE METABOLIC 2021-12-27 16:07:00 Enrique [facility] PANEL [facility] MAGNESIUM LEVEL 2021-12-27 16:07:00 Enrique Rocha V. [facility] AMYLASE LEVEL 2021-12-27 16:07:00 Krystal Johnson [facility] LIPASE LEVEL 2021-12-27 16:07:00 [facility] CBC 2021-12-27 16:07:00 Enrique Rocha V. [facility] MANUAL DIFFERENTIAL 2021-12-27 16:07:00 Enrique Rocha [facility] GLUCOSE LEVEL 2021-12-27 16:07:00 Enrique Rocha V. [facility] BLOOD UREA NITROGEN 2021-12-27 16:07:00 Enrique Rocha [facility] ELECTROLYTE PANEL 2021-12-27 16:07:00 Enrique Rocha [facility] SERUM CREATININE 2021-12-27 16:07:00 Enrique Rocah V. [facility] .GLOMERULAR FILTRATION 2021-12-27 16:07:00 [facility] TOTAL 2021-12-27 16:07:00 Enrique [facility]. [facility] ALBUMIN LEVEL 2021-12-27 16:07:00 Enrique Rocha V. [facility] ALKALINE PHOSPHATASE 2021-12-27 16:07:00 Enrique Rocha [facility] ALANINE AMINOTRANSFERASE 2021-12-27 16:07:00 Enrique Rocha V. [facility] ASPARTATE AMINOTRANSFERASE 2021-12-27 16:07:00 Enrique Rocha [facility] TOTAL PROTEIN 2021-12-27 16:07:00 Enrique Rocha V. [facility] FRACTIONATED BILIRUBIN 2021-12-27 16:07:00 Enrique [facility]. [facility] ABDOMEN 2 VW AP W 2021-12-06 18:25:12 Krystal Johnson [facility] UPRIGHT AND OR DECUBITUS MD [facility] GENERAL LABORATORY ADD ON 2021-12-06 17:55:00 Krystal Johnson [facility] TEST [facility] PETCT SUBSEQUENT TREATMENT 2021-12-06 00:12:39 Krystal Johnson [facility] STRATEGY [facility] COMPLETE BLOOD COUNT W/ 2021-12-05 20:16:00 Enrique [facility]ocha [facility] DIFFERENTIAL [facility] COMPREHENSIVE METABOLIC 2021-12-05 20:16:00 Enrique [facility]ocha [facility] PANEL [facility] MAGNESIUM LEVEL 2021-12-05 20:16:00 [facility]ID STIM[facility]ATING 2021-12-05 20:16:00 Enrique Rocha [facility] HORMONE [facility] FREE THYROXINE 2021-12-05 20:16:00 [facility] Results CBC 2021-12-05 20:16:00 [facility] MANUAL DIFFERENTIAL 2021-12-05 20:16:00 Enrique Rocha [facility] GLUCOSE LEVEL 2021-12-05 20:16:00 [facility] BLOOD UREA NITROGEN 2021-12-05 20:16:00 Enrique Rocha [facility] ELECTROLYTE PANEL 2021-12-05 20:16:00 [facility] SERUM CREATININE 2021-12-05 20:16:00 Enrique Rocha ty [facility] .GLOMERULAR FILTRATION 2021-12-05 20:16:00 Enrique [facility] RATE [facility] CALCIUM LEVEL TOTAL 2021-12-05 20:16:00 Enrique [facility] ALBUMIN LEVEL 2021-12-05 20:16:00 Fossella, Enrique V. [facility] ALKALINE PHOSPHATASE 2021-12-05 20:16:00 Enrique Rocha V. [facility] ALANINE AMINOTRANSFERASE 2021-12-05 20:16:00 Enrique Rocha V. [facility] ASPARTATE AMINOTRANSFERASE 2021-12-05 20:16:00 Enrique Rocha [facility] TOTAL PROTEIN 2021-12-05 20:16:00 Enrique Rocha V. [facility] FRACTIONATED BILIRUBIN 2021-12-05 20:16:00 Enrique [facility]ocha [facility]. [facility] AMYLASE LEVEL 2021-12-05 20:16:00 Enrique Rocha V. [facility] LIPASE LEVEL 2021-12-05 20:16:00 Enrique Rocha V. [facility] MRI BRAIN W WO CONTRAST 2021-12-05 19:34:44 Sherrell Mazariegos [facility] COMPLETE BLOOD COUNT W/ 2021-11-07 20:52:00 Enrique Rocha V. U [facility] DIFFERENTIAL [facility] COMPREHENSIVE METABOLIC 2021-11-07 20:52:00 Enrique Rocha [facility] PANEL [facility] MAGNESIUM LEVEL 2021-11-07 20:52:00 Enrique Rocha V. [facility] THYROID STIMULATING 2021-11-07 20:52:00 Enrique Rocha V. [facility] HORMONE [facility] FREE THYROXINE 2021-11-07 20:52:00 Enrique Rocha V. [facility] Results CBC 2021-11-07 20:52:00 Enrique Rocha V. [facility] MANUAL DIFFERENTIAL 2021-11-07 20:52:00 Enrique Rocha [facility] GLUCOSE LEVEL 2021-11-07 20:52:00 Enrique Rocha V. [facility] BLOOD UREA NITROGEN 2021-11-07 20:52:00 Enrique Rocha V. [facility] ELECTROLYTE PANEL 2021-11-07 20:52:00 Enrique Rocha V. [facility] SERUM CREATININE 2021-11-07 20:52:00 Enrique Rocha V. [facility] .GLOMERULAR FILTRATION 2021-11-07 20:52:00 Enrique [facility]ocha [facility]. Un [facility] RATE [facility] CALCIUM LEVEL TOTAL 2021-11-07 20:52:00 Enrique Rocha V. [facility] ALBUMIN LEVEL 2021-11-07 20:52:00 Enrique Rocha V. [facility] ALKALINE PHOSPHATASE 2021-11-07 20:52:00 Enrique Rocha V. [facility] ALANINE AMINOTRANSFERASE 2021-11-07 20:52:00 Enrique Rocha V. [facility] ASPARTATE AMINOTRANSFERASE 2021-11-07 20:52:00 Enrique Rocha [facility] TOTAL PROTEIN 2021-11-07 20:52:00 Enrique Rocha V. [facility] FRACTIONATED BILIRUBIN 2021-11-07 20:52:00 En[facility] COMPLETE BLOOD COUNT W/ 2021-10-17 16:43:00 Enrique [facility]ocha V. [facility] DIFFERENTIAL [facility] COMPREHENSIVE METABOLIC 2021-10-17 16:43:00 Enrique Rocha V. U [facility] PANEL [facility] MAGNESIUM LEVEL 2021-10-17 16:43:00 Enrique Rocha V. [facility] THYROID STIMULATING 2021-10-17 16:43:00 Enrique Rocha V. [facility] HORMONE [facility] FREE THYROXINE 2021-10-17 16:43:00 Enrique Rocha V. [facility] Results CBC 2021-10-17 16:43:00 Enrique Rocha V. [facility] MANUAL DIFFERENTIAL 2021-10-17 16:43:00 Enrique Rocha V. [facility] GLUCOSE LEVEL 2021-10-17 16:43:00 Enrique Rocha V. [facility] BLOOD UREA NITROGEN 2021-10-17 16:43:00 Enrique Rocha V. [facility] ELECTROLYTE PANEL 2021-10-17 16:43:00 Enrique Rocha V. [facility] SERUM CREATININE 2021-10-17 16:43:00 Enrique Rocha V. [facility] .GLOMERULAR FILTRATION 2021-10-17 16:43:00 Enrique [facility] RATE [facility] CALCIUM LEVEL TOTAL 2021-10-17 16:43:00 Enrique Rocha V. [facility] ALBUMIN LEVEL 2021-10-17 16:43:00 Enrique Rocha V. [facility] ALKALINE PHOSPHATASE 2021-10-17 16:43:00 Enrique Rocha V. [facility] ALANINE AMINOTRANSFERASE 2021-10-17 16:43:00 Enrique Rocha V. [facility] ASPARTATE AMINOTRANSFERASE 2021-10-17 16:43:00 Enrique Rocha [facility] TOTAL PROTEIN 2021-10-17 16:43:00 Enrique Rocha V. [facility] FRACTIONATED BILIRUBIN 2021-10-17 16:43:00 Enrique [facility]ocha V. [facility] COMPLETE BLOOD COUNT W/ 2021-09-26 18:17:00 Enrique [facility]ocha V. [facility] DIFFERENTIAL [facility] COMPREHENSIVE METABOLIC 2021-09-26 18:17:00 Enrique [facility]ocha [facility]. [facility] PANEL [facility] MAGNESIUM LEVEL 2021-09-26 18:17:00 Enrique Rocha V. [facility] THYROID STIMULATING 2021-09-26 18:17:00 Enrique Rocha V. [facility] HORMONE [facility] FREE THYROXINE 2021-09-26 18:17:00 Enrique Rocha V. [facility] Results CBC 2021-09-26 18:17:00 Enrique Rocha V. [facility] MANUAL DIFFERENTIAL 2021-09-26 18:17:00 Enrique Rocha [facility] GLUCOSE LEVEL 2021-09-26 18:17:00 Enrique Rocha V. [facility] BLOOD UREA NITROGEN 2021-09-26 18:17:00 Enrique Rocha [facility] ELECTROLYTE PANEL 2021-09-26 18:17:00 Enrique Rocha V. [facility] SERUM CREATININE 2021-09-26 18:17:00 Enrique Rocha V. [facility] .GLOMERULAR FILTRATION 2021-09-26 18:17:00 [facility] CALCIUM LEVEL TOTAL 2021-09-26 18:17:00 Enrique Rocha V. [facility] ALBUMIN LEVEL 2021-09-26 18:17:00 Enrique Rocha V. [facility] ALKALINE PHOSPHATASE 2021-09-26 18:17:00 Enrique Rocha [facility] ALANINE AMINOTRANSFERASE 2021-09-26 18:17:00 Enrique Rocha V. [facility] ASPARTATE AMINOTRANSFERASE 2021-09-26 18:17:00 Enrique Rocha [facility] TOTAL PROTEIN 2021-09-26 18:17:00 Enrique Rocha V. [facility] FRACTIONATED BILIRUBIN 2021-09-26 18:17:00 Enrique Rocha V. Un [facility] PETCT SUBSEQUENT TREATMENT 2021-09-05 22:12:53 Krystal Johnson [facility] STRATEGY [facility] COMPLETE BLOOD COUNT W/ 2021-09-05 19:16:00 Enrique Rocha [facility] DIFFERENTIAL [facility] COMPREHENSIVE METABOLIC 2021-09-05 19:16:00 Enrique Rocha [facility] PANEL [facility] MAGNESIUM LEVEL 2021-09-05 19:16:00 Enrique Rocha y [facility] THYROID STIMULATING 2021-09-05 19:16:00 Enrique [facility]ocha [facility] HORMONE [facility] FREE THYROXINE 2021-09-05 19:16:00 [facility] Results CBC 2021-09-05 19:16:00 Enrique Rocha y [facility] MANUAL DIFFERENTIAL 2021-09-05 19:16:00 Enrique [facility]ocha [facility] GLUCOSE LEVEL 2021-09-05 19:16:00 Enrique Rocha y [facility] BLOOD UREA NITROGEN 2021-09-05 19:16:00 Enrique [facility]ocha [facility] ELECTROLYTE PANEL 2021-09-05 19:16:00 Enrique Rocha ity [facility] SERUM CREATININE 2021-09-05 19:16:00 Enrique Rocha ty [facility] .GLOMERULAR FILTRATION 2021-09-05 19:16:00 [facility] [place] [facility] CALCIUM LEVEL TOTAL 2021-09-05 19:16:00 Enrique [facility]ocha [facility] ALBUMIN LEVEL 2021-09-05 19:16:00 Enrique Rochait y [facility] ALKALINE PHOSPHATASE 2021-09-05 19:16:00 Enrique Rocha ersity [facility] ALANINE AMINOTRANSFERASE 2021-09-05 19:16:00 Enrique Rocha V. [facility] ASPARTATE AMINOTRANSFERASE 2021-09-05 19:16:00 Enrique Rocha [facility] TOTAL PROTEIN 2021-09-05 19:16:00 Enrique Rocha V. [facility] FRACTIONATED BILIRUBIN 2021-09-05 19:16:00 Enrique Rocha V. Un [facility] MRI BRAIN W WO CONTRAST 2021-08-30 17:50:00 Ghada Michael [facility] COMPLETE BLOOD COUNT W/ 2021-08-02 12:49:00 Enrique [facility] DIFFERENTIAL [facility] COMPREHENSIVE METABOLIC 2021-08-02 12:49:00 Enrique Rocha [facility] PANEL [facility] MAGNESIUM LEVEL 2021-08-02 12:49:00 Enrique Rocha V. [facility] THYROID STIMULATING 2021-08-02 12:49:00 Enrique Rocha [facility] HORMONE [facility] FREE THYROXINE 2021-08-02 12:49:00 Enrique Rocha V. [facility] Results CBC 2021-08-02 12:49:00 Enrique Rocha V. [facility] MANUAL DIFFERENTIAL 2021-08-02 12:49:00 Enrique Rocha [facility] GLUCOSE LEVEL 2021-08-02 12:49:00 Enrique Rocha V. [facility] BLOOD UREA NITROGEN 2021-08-02 12:49:00 Enrique Rocha [facility] ELECTROLYTE PANEL 2021-08-02 12:49:00 Enrique Rocha [facility] SERUM CREATININE 2021-08-02 12:49:00 Enrique Rocha ty [facility] .GLOMERULAR FILTRATION 2021-08-02 12:49:00 Enrique Rocha V. Un [facility] RATE [facility] CALCIUM LEVEL TOTAL 2021-08-02 12:49:00 Enrique [facility]ocha [facility] ALBUMIN LEVEL 2021-08-02 12:49:00 Enrique Rocha V. [facility] ALKALINE PHOSPHATASE 2021-08-02 12:49:00 Enrique Rocha V. Univ [facility] ALANINE AMINOTRANSFERASE 2021-08-02 12:49:00 Enrique Rocha V. [facility] ASPARTATE AMINOTRANSFERASE 2021-08-02 12:49:00 Enrique Rocha [facility] TOTAL PROTEIN 2021-08-02 12:49:00 Enrique Rocha V. [facility] FRACTIONATED BILIRUBIN 2021-08-02 12:49:00 [facility]. [facility]REATMENT 2021-06-27 16:23:00 Krystal Johnson [facility] STRATEGY [facility] COMPLETE BLOOD COUNT W/ 2021-06-27 13:32:00 Enrique [facility]ocha V. [facility] DIFFERENTIAL [facility] COMPREHENSIVE METABOLIC 2021-06-27 13:32:00 Enrique Rocha V. [facility] PANEL [facility] MAGNESIUM LEVEL 2021-06-27 13:32:00 Enrique Rocha V. [facility] THYROID STIMULATING 2021-06-27 13:32:00 Enrique Rocha [facility] HORMONE [facility] FREE THYROXINE 2021-06-27 13:32:00 Enrique Rocha V. [facility] Results CBC 2021-06-27 13:32:00 Enrique Rocha V. [facility] MANUAL DIFFERENTIAL 2021-06-27 13:32:00 Enrique Rocha [facility] GLUCOSE LEVEL 2021-06-27 13:32:00 Enrique Rocha V. [facility] BLOOD UREA NITROGEN 2021-06-27 13:32:00 Enrique Rocha V. [facility] ELECTROLYTE PANEL 2021-06-27 13:32:00 Enrique Rocha V. [facility] SERUM CREATININE 2021-06-27 13:32:00 Enrique Rocha V. [facility] .GLOMERULAR FILTRATION 2021-06-27 13:32:00 Enrique Rocha V. Un [facility] RATE [facility] CALCIUM LEVEL TOTAL 2021-06-27 13:32:00 Enrique Rocha V. [facility] ALBUMIN LEVEL 2021-06-27 13:32:00 Enrique Rocha V. [facility] ALKALINE PHOSPHATASE 2021-06-27 13:32:00 Enrique Rocha V. [facility] ALANINE AMINOTRANSFERASE 2021-06-27 13:32:00 Enrique Rocha V. [facility] ASPARTATE AMINOTRANSFERASE 2021-06-27 13:32:00 Enrique Rocha [facility] TOTAL PROTEIN 2021-06-27 13:32:00 Enrique Rocha V. [facility] FRACTIONATED BILIRUBIN 2021-06-27 13:32:00 Enrique Rocha V. Un [facility] COMPLETE BLOOD COUNT W/ 2021-05-31 20:08:00 Enrique [facility]ocha V. [facility] DIFFERENTIAL [facility] COMPREHENSIVE METABOLIC 2021-05-31 20:08:00 Enrique Rocha V. [facility] PANEL [facility] MAGNESIUM LEVEL 2021-05-31 20:08:00 Enrique Rocha V. [facility] THYROID STIMULATING 2021-05-31 20:08:00 Enrique Rocha V. [facility] HORMONE [facility] FREE THYROXINE 2021-05-31 20:08:00 Enrique Rocha V. [facility] Results CBC 2021-05-31 20:08:00 Enrique Rocha V. [facility] MANUAL DIFFERENTIAL 2021-05-31 20:08:00 Enrique Rocha V. [facility] GLUCOSE LEVEL 2021-05-31 20:08:00 Enrique Rocha V. [facility] BLOOD UREA NITROGEN 2021-05-31 20:08:00 Enrique Rocha V. [facility] ELECTROLYTE PANEL 2021-05-31 20:08:00 Enrique Rocha V. [facility] SERUM CREATININE 2021-05-31 20:08:00 Enrique Rocha V. [facility] .GLOMERULAR FILTRATION 2021-05-31 20:08:00 [facility] CALCIUM LEVEL TOTAL 2021-05-31 20:08:00 Enrique Rocha V. [facility] ALBUMIN LEVEL 2021-05-31 20:08:00 Enrique Rocha V. [facility] ALKALINE PHOSPHATASE 2021-05-31 20:08:00 Enrique Rocha V. [facility] ALANINE AMINOTRANSFERASE 2021-05-31 20:08:00 Enrique Rocha V. [facility] ASPARTATE AMINOTRANSFERASE 2021-05-31 20:08:00 Enrique Rocha [facility] TOTAL PROTEIN 2021-05-31 20:08:00 Enrique Rocha V. [facility] FRACTIONATED BILIRUBIN 2021-05-31 20:08:00 [facility] WO CONTRAST 2021-05-31 18:40:50 Julian Ovalle [facility] TRANSFUSE RED BLOOD CELLS 2021-05-11 21:40:00 Krystal Johnson [facility] PRBC PRODUCT READY FOR 2021-05-11 12:59:00 Enrique [facility]. [facility] CONFIRM ABORH TYPE 2021-05-10 18:44:00 Krystal Johnson [facility] ABORH 2021-05-10 18:44:00 Krystal Johnson [facility] ANTIBODY SCREEN 2021-05-10 18:44:00 Krystal Johnson [facility] CLOT EXPIRATION DATE 2021-05-10 18:44:00 Krystal Johnson [facility] TMP INTERPRETATION 2021-05-10 18:44:00 Krystal Johnson [facility] ANTIBODY SCREEN NEGATIVE MD Hair [facility] TMP CROSSMATCH 2021-05-10 18:44:00 Krystal Johnson [facility] INTERPRETATION [facility] PREPARE RBC 2021-05-10 18:29:00 Krystal Johnson [facility] PRBC PRODUCT READY FOR 2021-05-10 18:29:00 [facility] COMPLETE BLOOD COUNT W/ 2021-05-10 16:17:00 [facility] COMPREHENSIVE METABOLIC 2021-05-10 16:17:00 Enrique [facility] PANEL [facility] MAGNESIUM LEVEL 2021-05-10 16:17:00 [facility] THYROID STIMULATING 2021-05-10 16:17:00 Enrique Rocha [facility] HORMONE [facility] FREE THYROXINE 2021-05-10 16:17:00 [facility] Results CBC 2021-05-10 16:17:00 Enrique Rocha V. [facility] MANUAL DIFFERENTIAL 2021-05-10 16:17:00 Enrique Rocha [facility] GLUCOSE LEVEL 2021-05-10 16:17:00 Enrique Rocha V. [facility] BLOOD UREA NITROGEN 2021-05-10 16:17:00 Enrique Rocha V. [facility] ELECTROLYTE PANEL 2021-05-10 16:17:00 Enrique Rocha V. [facility] SERUM CREATININE 2021-05-10 16:17:00 Enrique Rocha V. [facility] .GLOMERULAR FILTRATION 2021-05-10 16:17:00 [facility] TOTAL 2021-05-10 16:17:00 Enrique Rocha V. [facility] ALBUMIN LEVEL 2021-05-10 16:17:00 Enrique Rocha V. [facility] ALKALINE PHOSPHATASE 2021-05-10 16:17:00 Enrique Rocha V. [facility] ALANINE AMINOTRANSFERASE 2021-05-10 16:17:00 Enrique Rocha V. [facility] ASPARTATE AMINOTRANSFERASE 2021-05-10 16:17:00 Enrique Rocha [facility] TOTAL PROTEIN 2021-05-10 16:17:00 Enrique Rocha V. [facility] FRACTIONATED BILIRUBIN 2021-05-10 16:17:00 [facility] VENOUS DOPPLER 2021-04-28 22:56:46 Wicho Toro [facility] BILATERAL [facility] CT CHEST PULMONARY 2021-04-28 22:22:00 Clare Ledesma [facility] EMBOLISM W CONTRAST [facility] RESPIRATORY VIRAL PANEL + 2021-04-28 21:05:00 Clare Ledesma [facility] COVID-19, NASOPHARYNGEAL MD Hair [facility] COMPLETE BLOOD COUNT W/ 2021-04-28 20:51:00 Clare Ledesma U [facility] DIFFERENTIAL [facility] COMPREHENSIVE METABOLIC 2021-04-28 20:51:00 Clare Ledesma [facility] PANEL [facility] MAGNESIUM LEVEL 2021-04-28 20:51:00 Clare Ledesma [facility] PHOSPHORUS LEVEL 2021-04-28 20:51:00 Clare Ledesma [facility] CARDIAC PANEL 2021-04-28 20:51:00 Clare Ledesma [facility] NT PRO BNP 2021-04-28 20:51:00 Clare Ledesma [facility] PROTHROMBIN TIME 2021-04-28 20:51:00 Clare Ledesma [facility] APTT 2021-04-28 20:51:00 Clare Ledesma [facility] D DIMER 2021-04-28 20:51:00 Clare Ledesma [facility] Results CBC 2021-04-28 20:51:00 Clare Ledesma [facility] MANUAL DIFFERENTIAL 2021-04-28 20:51:00 Clare Ledesma [facility] GLUCOSE LEVEL 2021-04-28 20:51:00 Clare Ledesma [facility] BLOOD UREA NITROGEN 2021-04-28 20:51:00 Clare Ledesma [facility] ELECTROLYTE PANEL 2021-04-28 20:51:00 Clare Ledesma [facility] SERUM CREATININE 2021-04-28 20:51:00 Clare Ledesma [facility] .GLOMERULAR FILTRATION 2021-04-28 20:51:00 Clare [facility] R[facility] CALCIUM LEVEL TOTAL 2021-04-28 20:51:00 Clare Ledesma [facility] ALBUMIN LEVEL 2021-04-28 20:51:00 Clare Ledesma [facility] ALKALINE PHOSPHATASE 2021-04-28 20:51:00 Clare Ledesma [facility] ALANINE AMINOTRANSFERASE 2021-04-28 20:51:00 Clare Ledesma [facility] ASPARTATE AMINOTRANSFERASE 2021-04-28 20:51:00 Clare Ledesma [facility] TOTAL PROTEIN 2021-04-28 20:51:00 Clare Ledesma [facility] FRACTIONATED BILIRUBIN 2021-04-28 20:51:00 Clare Led[facility] PETCT SUBSEQUENT TREATMENT 2021-04-17 21:36:09 Krystal Johnson [facility] POC GLUCOSE SCREEN 2021-04-17 19:54:00 Krystal Johnson [facility] COMPLETE BLOOD COUNT W/ 2021-04-17 18:54:00 [facility] COMPREHENSIVE METABOLIC 2021-04-17 18:54:00 [facility] PANEL [facility] MAGNESIUM LEVEL 2021-04-17 18:54:00 Enrique Rocha V. [facility] THYROID STIMULATING 2021-04-17 18:54:00 Enrique Rocha [facility]. [facility] HORMONE [facility] FREE THYROXINE 2021-04-17 18:54:00 Enrique Rocha V. [facility] Results CBC 2021-04-17 18:54:00 Enrique Rocha V. [facility] MANUAL DIFFERENTIAL 2021-04-17 18:54:00 Enrique Rocha [facility] GLUCOSE LEVEL 2021-04-17 18:54:00 Enrique Rocha V. [facility] BLOOD UREA NITROGEN 2021-04-17 18:54:00 Enrique Rocha V. [facility] ELECTROLYTE PANEL 2021-04-17 18:54:00 Enrique Rocha V. [facility] SERUM CREATININE 2021-04-17 18:54:00 Enrique Rocha V. [facility] .GLOMERULAR FILTRATION 2021-04-17 18:54:00 [facility]CI[facility] TOTAL 2021-04-17 18:54:00 Enrique Rocha [facility] ALBUMIN LEVEL 2021-04-17 18:54:00 Enrique Rocha V. [facility] ALKALINE PHOSPHATASE 2021-04-17 18:54:00 Enrique Rocha [facility] ALANINE AMINOTRANSFERASE 2021-04-17 18:54:00 Enrique Rocha V. [facility] ASPARTATE AMINOTRANSFERASE 2021-04-17 18:54:00 Enrique Rocha [facility] TOTAL PROTEIN 2021-04-17 18:54:00 Enrique Rocha V. [facility] FRACTIONATED BILIRUBIN 2021-04-17 18:54:00 [facility] FOOT 3+ VW LEFT 2021-01-15 15:43:54 Kirill Delgado [facility] [place] Plan of Care Planned Activity Planned Date Details Comments Source Future Scheduled 2022-04-11 COVID-19 Vaccination [facility] Test 13:01:42 (4 - Booster for [facility] Pfizer series) [code Center = COVID-19 Vaccination (4 - Booster for Pfizer series)] Encounters Start End Encounter Admission Attending Care Care Encounter Source Date/Time Date/Time Type Type Clinicians Facility Department ID 2021-11-27 Outpatient SYSTEM, MDA MDA [id number] 10:10:31 PROVIDER Ron o n 2020-12-13 Outpatient SYSTEM, MDA MDA [id number] 18:40:27 PROVIDER Ron o n 2020-06-17 Outpatient SYSTEM, MDA MDA [id number] 15:05:10 PROVIDER Ron o n 2020-06-08 Outpatient MDA MDA [id number] 08:23:19 Anderso n 2020-06-08 Outpatient MDA MDA [id number] 08:20:10 Anderso n 2020-06-08 Outpatient MDA MDA [id number] 08:19:00 Anderso n 2020-05-30 Inpatient ER [facility] Internal [id number] [facility] 00:15:00 [facility] 2022-04-11 2022-04-11 Office Aj 1.2.840.1 [id number] [facility] 12:30:00 13:24:19 Visit Enrique Zabala.1.1 ity of 3.412.2.7 [place] .3.608524 .8 [facility] 2022-04-11 2022-04-11 [facility] Enrique Vargas2.840.1 [id number] [facility] 12:59:35 12:59:35 Encounter Augusta العلي.1.1 ity of 3.412.2.7 [place] .3.123149 MD Bermudez8 [facility] 2022-04-11 2022-04-11 [facility] Sam2.840.1 [id number] [facility] 10:26:36 10:26:36 Encounter Enrique Zabala.1.1 i ty of 3.412.2.7 [place] .3.521330 MD Bermudez8 [facility] 2022-04-11 2022-04-11 [facility] Sam2.840.1 [id number] [facility] 00:00:00 00:00:00 Only Enrique Zabala.1.1 ity of 3.412.2.7 [place] .3.897564 MD Bermudez8 [facility] 2022-04-11 2022-04-11 Travel 1.2.840.1 1.2.709.821 3950 [id number] Univers 00:00:00 00:00:00 80403.1.1 350.1.13.41 ity of 3.412.2.7 [place].3.698 [place] .3.550440 084.8 MD Lu [facility] 2022-03-23 2022-03-23 Hospital Bruna Sams 1.2.840.1 [id number] Univers 10:11:19 23:59:00 Encounter Flor Dunn 66875.1.1 ity of 3.412.2.7 [place] .3.921498 MD [facility] 2022-03-23 2022-03-23 [facility] Rolf 1.2.840.1 [id number] Univers 09:20:00 09:58:11 Visit Bruna Dixon 94288.1.1 it y of 3.412.2.7 [place] .3.767785 MD [facility] 2022-03-23 2022-03-23 Travel 1.2.840.1 1.2.792.235 0371 [id number] Univers 00:00:00 00:00:00 69933.1.1 350.1.13.41 ity of 3.412.2.7 [place].3.698 [place] .3.209602 084.8 MD [facility] 2022-03-21 2022-03-21 [facility] Enrique Carbone 1.2.840.1 1010 [id number] [id number] Univers 11:54:44 23:59:00 Encounter Gagandeep Alejandro 25004.1.1 ity of 3.412.2.7 [place] .3.255987 MD [facility] 2022-03-21 2022-03-21 [facility] 1.2.840.1 [id number] Univers 08:52:28 11:53:00 Encounter Enrique Carbone 89186.1.1 i ty of 3.412.2.7 [place] .3.471802 MD Bermudez8 [facility] 2022-03-21 2022-03-21 Office Aj, 1.2.840.1 [id number] [id number] Univers 10:30:00 11:36:23 Visit Enrique Carbone 73215.1.1 ity of 3.412.2.7 [place] .3.087824 MD Bermudez8 [facility] 2022-03-21 2022-03-21 Travel 1.2.840.1 1.2.318.143 6362 [id number] Univers 00:00:00 00:00:00 52684.1.1 350.1.13.41 ity of 3.412.2.7 [place]7.3.698 [place] .3.002654 084.8 MD [facility] 2022-03-20 2022-03-20 Bj Johnson, 1.2.840.1 [id number] Univers 00:00:00 00:00:00 Krystal 12747.1.1 it y of 3.412.2.7 [place] .3.839271 MD Bermudez8 [facility] 2022-02-28 2022-02-28 [facility] 1.2.840.1 [id number] [id number] Univers 13:25:04 23:59:00 Encounter Betty Dawn 34223.1.1 i ty of 3.412.2.7 [place] .3.591036 MD [facility] 2022-02-28 2022-02-28 Infusion Enrique Rocha V. 1.2.840.1 1010 [id number] Univers 16:30:00 17:16:48 Anne-Marie Huynh 78149.1.1 ity of 3.412.2.7 [place] .3.323639 MD [facility] 2022-02-28 2022-02-28 Office Aj 1.2.840.1 [id number] [id number] Univers 12:00:00 13:03:59 Visit Enrique V. 82786.1.1 ity of 3.412.2.7 [place] .3.652354 MD [facility] 2022-02-28 2022-02-28 Dipak Johnson, 1.2.840.1 [id number] Univers 00:00:00 00:00:00 Only Krystal 63051.1.1 it y of 3.412.2.7 [place] .3.845765 MD [facility] 2022-02-28 2022-02-28 Travel 1.2.840.1 1.2.470.811 7808 [id number] Univers 00:00:00 00:00:00 95840.1.1 350.1.13.41 ity of 3.412.2.7 [place]7.3.698 [place] .3.013494 084.8 MD [facility] 2022-02-27 2022-02-27 [facility], 1.2.840.1 [id number] Univers 12:09:10 23:59:00 Encounter Enrique Carbone 35912.1.1 i ty of 3.412.2.7 [place] .3.020373 MD [facility] 2022-02-27 2022-02-27 Ancillary Alex, 1.2.840.1 [id number] [id number] Univers 17:15:00 19:00:00 Procedure Krystal 77136.1.1 ity of 3.412.2.7 [place] .3.454844 MD [facility] 2022-02-27 2022-02-27 Diamond Johnson, 1.2.840.1 [id number] [id number] Univers 14:00:00 16:30:00 Procedure Krystal 03677.1.1 ity of 3.412.2.7 [place] .3.285998 MD [facility] 2022-02-27 2022-02-27 Travel 1.2.840.1 1.2.436.315 7575 [id number] Univers 00:00:00 00:00:00 19137.1.1 350.1.13.41 ity of 3.412.2.7 [place]7.3.698 [place]3.267867 084.8 MD Bermudez8 [facility] 2022-02-07 2022-02-07 Outpatient ALEX [facility] [id number] 08:06:47 23:59:00 KRYSTAL lorenzana 2022-02-07 2022-02-07 [facility] 1.2.840.1 [id number] [facility] 08:06:47 23:59:00 Encounter Krystal 84721.1.1 ity of 3.412.2.7 [place] .3.946625 MD Bermudez8 [facility] 2022-02-07 2022-02-07 [facility] Krystal Johnson 1.2.840.1 [id number] [facility] 14:00:00 14:00:00 Artie Beaver 29956.1.1 ity of 3.412.2.7 [place] .3.736897 MD [facility] 2022-02-07 2022-02-07 [id number] 09:42:58 11:40:32 KRYSTAL lorenzana 2022-02-07 2022-02-07 [place] [address].2.840.1 [id number] [facility] 09:30:00 09:30:00 Visit Enrique Carbone 20323.1.1 ity of 3.412.2.7 [place] .3.267428 MD Bermudez8 [facility] 2022-02-07 2022-02-07 [facility] [id number] 08:50:36 09:24:58 ENRIQUE lorenzana 2022-02-07 2022-02-07 [place] [address]67.2.840.1 [id number] [facility] 00:00:00 00:00:00 Only Krystal 06657.1.1 it y of 3.412.2.7 [place] .3.390367 MD Bermudez8 [facility] 2022-02-07 2022-02-07 Orders Garcia, 1.2.840.1 [id number] Univers 00:00:00 00:00:00 Only Briana 42281.1.1 ity of 3.412.2.7 [place] .3.361287 MD Bermudez8 [facility] 2022-02-07 2022-02-07 Travel 1.2.840.1 1.2.744.677 [id number] [id number] Univers 00:00:00 00:00:00 19741.1.1 350.1.13.41 ity of 3.412.2.7 [place]7.3.698 [place] .3.633467 084.8 MD [facility] 2022-01-19 2022-01-19 Outpatient ITA SAMS MDA [facility] [id number] 09:26:40 23:59:00 BRUNA lorenzana 2022-01-19 2022-01-19 [facility] Bruna Sams 1.2.840.1 [id number] [facility] 09:26:40 23:59:00 Flor Yadav 32890.1.1 ity of 3.412.2.7 [place] .3.836459 MD [facility] 2022-01-19 2022-01-19 [facility] Rolf 1.2.840.1 [id number] [facility] 08:20:00 09:15:31 Visit Bruna Dixon 77604.1.1 it y of 3.412.2.7 [place] .3.149803 MD [facility] 2022-01-19 2022-01-19 Outpatient ITA SAMS [facility] [id number] 07:33:53 09:15:31 BRUNA lorenzana 2022-01-19 2022-01-19 Dipak Johnson 1.2.840.1 [id number] Univers 00:00:00 00:00:00 Only Krystal 01612.1.1 it y of 3.412.2.7 [place] .3.480266 .8 [facility] 2022-01-19 2022-01-19 Travel 1.2.840.1 1.2.209.086 [id number] [id number] [facility] 00:00:00 00:00:00 66319.1.1 350.1.13.41 ity of 3.412.2.7 [place]7.3.698 [place] .3.838953 084.8 .8 [facility] 2022-01-17 2022-01-17 Outpatient [facility] MDA [id number] 09:12:32 23:59:00 ENRIQUE lorenzana 2022-01-17 2022-01-17 [facility] 1.2.840.1 [id number] [facility] 09:12:32 23:59:00 Encounter Elton Morris 48683.1.1 ity of 3.412.2.7 [place] .3.989356 MD Bermudez8 [facility] 2022-01-17 2022-01-17 [facility] 1.2.840.1 [id number] [facility] 09:00:00 09:17:41 Visit Krystal Johnson 58105.1.1 ity of 3.412.2.7 [place] .3.574917 MD Bermudez8 [facility] 2022-01-17 2022-01-17 Outpatient [facility] MDA [id number] 08:27:00 09:17:41 ENRIQUE lorenzana 2022-01-17 2022-01-17 Outpatient [facility] MDA [id number] 06:27:37 09:11:00 ENRIQUE lorenzana 2022-01-17 2022-01-17 [facility] Jorge Alberto.2.840.1 [id number] [facility] 06:27:37 09:11:00 Encounter Enrique Carbone 89087.1.1 i ty of 3.412.2.7 [place] .3.273092 MD Bermudez8 [facility] 2022-01-17 2022-01-17 Dipak Dunnur 1.2.840.1 [id number] Univers 00:00:00 00:00:00 Only Ernestine hagan 40204.1.1 ity of 3.412.2.7 [place] .3.047615 MD [facility] 2022-01-17 2022-01-17 Orders Matthias, 1.2.840.1 [id number] Univers 00:00:00 00:00:00 Only Ilene 97766.1.1 ity of 3.412.2.7 [place] .3.707602 MD Bermudez8 [facility] 2022-01-17 2022-01-17 Travel 1.2.840.1 1.2.513.757 5218 [id number] Univers 00:00:00 00:00:00 07912.1.1 350.1.13.41 ity of 3.412.2.7 2.[place]7.3.698 [place] .3.170118 084.8 MD [facility] 2022-01-01 2022-01-01 Orders Alex, 1.2.840.1 [id number] Univers 00:00:00 00:00:00 Only Krystal 65554.1.1 it y of 3.412.2.7 [place] .3.374285 MD [facility] 2021-12-27 2021-12-27 Outpatient AJ [facility] [id number] 09:55:15 23:59:00 ENRIQUE lorenzana 2021-12-27 2021-12-27 [facility] Aj 1.2.840.1 [id number] Univers 09:55:15 23:59:00 Yesenia Carbone 34324.1.1 i ty of 3.412.2.7 [place] .3.881798 MD [facility] 2021-12-27 2021-12-27 Infusion Enrique Rocha V. 1.2.840.1 [id number] Univers 15:00:00 15:00:00 Nila Gauthier Yue Calica 02235.1.1 ity of 3.412.2.7 [place] .3.117514 MD Tabitha Jeffery [facility] 2021-12-27 2021-12-27 Outpatient ITA ROCHA MDA [facility] [id number] 12:11:19 14:05:26 ENRIQUE lorenzana 2021-12-27 2021-12-27 Diamond Johnson 1.2.840.1 [id number] [facility] 13:15:00 13:30:00 Procedure Krystal 82375.1.1 ity of 3.412.2.7 [place] .3.736092 MD [facility]ermudez8 [facility] 2021-12-27 2021-12-27 Outpatient ITA JOHNSON MDA [facility] [id number] 11:52:47 11:52:47 KRYSTAL lorenzana 2021-12-27 2021-12-27 [facility] Aj 1.2.840.1 [id number] [facility] 11:30:00 11:37:04 Visit Enrique Carbone 36555.1.1 ity of 3.412.2.7 [place] .3.895460 MD Bermudez8 [facility] 2021-12-27 2021-12-27 Outpatient ITA ROCHA [facility] [id number] 10:23:06 11:37:04 ENRIQUE lorenzana 2021-12-27 2021-12-27 Dipak Rocha 1.2.840.1 [id number] [facility] 00:00:00 00:00:00 Only Enrique Carbone 00215.1.1 ity of 3.412.2.7 [place] .3.606993 MD Bermudez8 Latia lorenzana Rust 2021-12-27 2021-12-27 Travel 1.2.840.1 1.2.918.670 [id number] [id number] Univers 00:00:00 00:00:00 26902.1.1 350.1.13.41 ity of 3.412.2.7 2.[place]7.3.698 [place] .3.113806 084.8 MD Bermudez8 [facility] 2021-12-10 2021-12-10 [facility] Vin, 1.2.840.1 [id number] Univers 00:00:00 00:00:00 Only Jensen 11622.1.1 ity of 3.412.2.7 [place] .3.698347 MD Bermudez8 [facility] 2021-12-06 2021-12-06 Outpatient ITA MURPHY [facility] [id number] 09:10:12 23:59:00 BETTY lorenzana 2021-12-06 2021-12-06 [facility] Jeffrey, 1.2.840.1 [id number] Univers 09:10:12 23:59:00 Encounter Betty Dawn 19566.1.1 i ty of 3.412.2.7 [place] .3.530450 MD Bermudez8 [facility] 2021-12-06 2021-12-06 Infusion Enrique Rocha V. 1.2.840.1 1010 [id number] Univers 15:30:00 15:30:00 Severiano Rosemary Garcia 89682.1.1 ity of 3.412.2.7 [place] .3.976375 MD Bermudez8 [facility] 2021-12-06 2021-12-06 Outpatient ITA ROCHA MDA MDA [id number] 12:28:54 15:05:52 ENRIQUE lorenzana 2021-12-06 2021-12-06 [facility] Alex 1.2.840.1 [id number] Univers 14:30:00 14:45:00 Procedure Krystal 61598.1.1 ity of 3.412.2.7 [place] .3.310558 MD Bermudez8 [facility] 2021-12-06 2021-12-06 Outpatient ITA JOHNSON MDA MDA [id number] 12:07:33 12:07:33 KRYSTAL lorenzana 2021-12-06 2021-12-06 Office Enrique Rocha V. 1.2.840.1 [id number] Univers 11:00:00 11:35:49 Visit Krystal Johnson 20485.1.1 ity of 3.412.2.7 [place] .3.368726 MD [facility] 2021-12-06 2021-12-06 Outpatient AJ [facility] [id number] 10:45:48 11:35:49 ENRIQUE lorenzana 2021-12-06 2021-12-06 Tra Taylor 1.2.840.1 [id number] Univers 00:00:00 00:00:00 Only 95253.1.1 ity of 3.412.2.7 [place] .3.296195 MD Bermudez8 [facility] 2021-12-06 2021-12-06 Dipak Garcia 1.2.840.1 [id number] Univers 00:00:00 00:00:00 Only Briana 80782.1.1 ity of 3.412.2.7 [place] .3.428616 MD [facility] 2021-12-06 2021-12-06 Travel 1.2.840.1 1.2.722.421 4298 [id number] Univers 00:00:00 00:00:00 64486.1.1 350.1.13.41 ity of 3.412.2.7 [place]7.3.698 [place] .3.606606 084.8 MD [facility] 2021-12-05 2021-12-05 [facility] [id number] 14:07:59 23:59:00 ENRIQUE lorenzana 2021-12-05 2021-12-05 [facility] 1.2.840.1 [id number] Univers 14:07:59 23:59:00 Yesenia Carbone 28385.1.1 i ty of 3.412.2.7 [place] .3.506079 MD [facility] 2021-12-05 2021-12-05 Diamond Johnson, 1.2.840.1 [id number] Univers 15:30:00 18:00:00 Lily Rice 59165.1.1 ity of 3.412.2.7 [place] .3.336681 .8 [facility] 2021-12-05 2021-12-05 Outpatient ITA JOHNSON MDA MDA [id number] 14:21:37 14:21:37 KRYSTAL lorenzana 2021-12-05 2021-12-05 Diamond Rocha, 1.2.840.1 [id number] [facility] 12:15:00 14:00:00 Procedure Enrique Carbone 91905.1.1 i ty of 3.412.2.7 [place] .3.431182 MD Bermudez8 [facility] 2021-12-05 2021-12-05 Outpatient ITA ROCHA MDA MDA [id number] 11:34:05 11:34:05 ENRIQUE lorenzana 2021-12-05 2021-12-05 Travel 1.2.840.1 1.2.255.396 7394 [id number] Univers 00:00:00 00:00:00 77690.1.1 350.1.13.41 ity of 3.412.2.7 [place]7.3.698 [place] .3.624055 084.8 .8 [facility] 2021-11-09 2021-11-09 Bj Johnson, 1.2.840.1 [id number] Univers 00:00:00 00:00:00 Krystal 48143.1.1 it y of 3.412.2.7 [place] .3.285407 MD Bermudez8 [facility] 2021-11-08 2021-11-08 Bj Johnson, 1.2.840.1 [id number] Univers 00:00:00 00:00:00 Krystal 11148.1.1 it y of 3.412.2.7 [place] .3.779453 MD [facility] 2021-11-07 2021-11-07 Outpatient ITA ROCHA MDA MDA [id number] 14:43:20 23:59:00 ENRIQUE lorenzana 2021-11-072021-11-07 [facility], 1.2.840.1 [id number] Univers 14:43:20 23:59:00 Encounter Enrique Carbone 53327.1.1 i ty of 3.412.2.7 [place] .3.149720 MD [facility] 2021-11-07 2021-11-07 Infusion Enrique Rocha VAidan 1.2.840.1 [id number] Univers 17:00:00 17:57:34 Hyun Mcadams 87557.1.1 ity of 3.412.2.7 [place] .3.668522 MD [facility] 2021-11-07 2021-11-07 Outpatient RAUL ROCHA [facility] [id number] 16:18:57 17:57:34 ENRIQUE lorenzana 2021-11-07 2021-11-07 [facility] 1.2.840.1 [id number] [facility] 16:00:00 16:05:05 Visit Enrique Carbone 65535.1.1 ity of 3.412.2.7 [place] .3.473075 MD [facility] 2021-11-07 2021-11-07 Outpatient KERLINEKEYUR ARUL [facility] [id number] 15:17:05 16:05:05 ENRIQUE lorenzana 2021-11-07 2021-11-07 Orders Binks, 1.2.840.1 [id number] Univers 00:00:00 00:00:00 Only Ely Dixon 54341.1.1 ity of 3.412.2.7 [place] .3.729579 MD [facility] 2021-11-07 2021-11-07 Travel 1.2.840.1 1.2.851.516 0569 [id number] Univers 00:00:00 00:00:00 86662.1.1 350.1.13.41 ity of 3.412.2.7 2.[place]7.3.698 [place] .3.259971 084.8 MD Bermudez8 [facility] 2021-10-17 2021-10-17 Outpatient [facility] RAUL [id number] [place] 12:39:09 23:59:00 ENRIQUE lorenzana 2021-10-17 2021-10-17 [facility] Derik. 1.2.840.1 [id number] [facility] 12:39:09 23:59:00 Encounter Vin Silverman 03401.1.1 ity of 3.412.2.7 [place] .3.419055 MD Bermudez8 [facility] 2021-10-17 2021-10-17 [place] [address].2.840.1 [id number] [facility] 12:00:00 12:48:28 Visit Enrique Carbone 55813.1.1 ity of 3.412.2.7 [place] .3.267155 MD Bermudez8 [facility] 2021-10-17 2021-10-17 Outpatient [facility] RAUL [id number] 11:35:01 12:48:28 ENRIQUE lorenzana 2021-10-17 2021-10-17 Outpatient [facility] RAUL [id number] [place] 10:31:18 12:38:00 ENRIQUE lorenzana 2021-10-17 2021-10-17 [facility] 1.2.840.1 [id number] [facility] 10:31:18 12:38:00 Encounter Enrique Carbone 52493.1.1 i ty of 3.412.2.7 [place] .3.680341 MD [facility]ude[facility] 2021-10-17 2021-10-17 Travel 1.2.840.1 1.2.209.441 [id number] [facility] 00:00:00 00:00:00 72929.1.1 350.1.13.41 ity of 3.412.2.[place].698 [place] .3.843129 084.8 MD [facility] 2021-09-26 2021-09-26 Outpatient [facility] RAUL [id number] 11:59:27 23:59:00 ENRIQUE lorenzana 2021-09-26 2021-09-26 [facility], 1.2.840.1 [id number] [facility] 11:59:27 23:59:00 Encounter Enrique Carbone 05008.1.1 i ty of 3.412.2.7 [place] .3.943359 MD Lu [facility] 2021-09-26 2021-09-26 Infusion Aj Enrique DerikAidan 1.2.840.1 [id number] [facility] 14:45:00 16:05:07 Vinnie Lockwood 37271.1.1 ity of 3.412.2.7 [place] .3.225409 MD Bermudez8 [facility] 2021-09-26 2021-09-26 Outpatient ITA ROCHA RAUL CARTER [id number] 14:11:50 16:05:07 ENRIQUE lorenzana 2021-09-26 2021-09-26 Office [facility] 1.2.840.1 [id number] [facility] 13:00:00 14:23:18 Visit Enrique Carbone 81285.1.1 ity of 3.412.2.7 [place] .3.710856 MD Lu [facility] 2021-09-26 2021-09-26 Outpatient AJ [facility] [id number] 12:35:53 14:23:18 ENRIQUE lorenzana 2021-09-26 2021-09-26 Orders Dykes, 1.2.840.1 [id number] Univers 00:00:00 00:00:00 Only Prashant 91309.1.1 ity of 3.412.2.7 [place] .3.962241 MD Bermudez8 [facility] 2021-09-26 2021-09-26 Travel 1.2.840.1 1.2.851.705 [id number] Univers 00:00:00 00:00:00 51213.1.1 350.1.13.41 ity of 3.412.2.[place]3.698 [place] .3.860653 084.8 MD Lu [facility] 2021-09-19 2021-09-19 Refill Alex, 1.2.840.1 [id number] Univers 00:00:00 00:00:00 Krystal 59980.1.1 it y of 3.412.2.7 [place] .3.609872 MD Bermudez8 [facility] 2021-09-06 2021-09-06 Infusion Enrique Rocha V. 1.2.840.1 [id number] [facility] 14:15:00 15:47:32 Anna Clark Anyi 39783.1.1 ity of 3.412.2.7 [place] .3.998672 MD Bermudez8 [facility] 2021-09-06 2021-09-06 Outpatient ITA ROCHA [facility] [id number] 12:59:54 15:47:32 ENRIQUE [facility] 2021-09-06 2021-09-06 Office Jorge Alberto Rocha.2.840.1 [id number] [facility] 11:30:00 12:47:37 Visit Enrique Carbone 56337.1.1 ity of 3.412.2.7 [place] .3.609336 MD Bermudez8 [facility] 2021-09-06 2021-09-06 Outpatient ITA ROCHA [facility] [id number] 11:07:26 12:47:37 ENRIQUE [facility] 2021-09-06 2021-09-06 Dipak Johnson 1.2.840.1 [id number] Univers 00:00:00 00:00:00 Only Krystal 50146.1.1 it y of 3.412.2.7 [place] .3.802376 MD Bermudez8 [facility] 2021-09-06 2021-09-06 Travel 1.2.840.1 1.2.016.062 [id number] [facility] 00:00:00 00:00:00 08171.1.1 350.1.13.41 ity of 3.412.2.7 [place].3.698 [place] .3.071705 084.8 .8 [facility]age [facility] 2021-09-05 2021-09-05 Outpatient [facility] [id number] MD 12:56:53 23:59:00 [facility] 2021-09-05 2021-09-05 Hospital 1.2.840.1 [id number] Univers 12:56:53 23:59:00 Encounter 11519.1.1 it y of 3.412.2.7 [place] .3.254563 .8 [facility] 2021-09-05 2021-09-05 Ancillary 1.2.840.1 [id number] Univers 14:30:00 17:00:00 Procedure 79552.1.1 it y of 3.412.2.7 [place] .3.232735 MD Bermudez8 [facility] 2021-09-05 2021-09-05 Outpatient [facility] [id number] MD 13:20:49 13:20:49 [facility] 2021-09-05 2021-09-05 Travel 1.2.840.1 1.2.175.104 [id number] [id number] Univers 00:00:00 00:00:00 57324.1.1 350.1.13.41 ity of 3.412.2.7 [place].698 [place] .3.596965 084.8 .8 [facility] 2021-08-31 2021-08-31 Orders Poulose, 1.2.840.1 [id number] Univers 00:00:00 00:00:00 Only Sherrell 35825.1.1 ity of 3.412.2.7 [place] .3.501872 .8 [facility] 2021-08-30 2021-08-30 Outpatient RAUL MICHAEL [facility] [id number] 14:59:57 23:59:00 GHADA Velasquez salomón 2021-08-30 2021-08-30 [facility] Ghada Michael 1.2.840.1 [id number] Univers 14:59:57 23:59:00 Encounter Betty Murphy 51477.1.1 ity of 3.412.2.7 [place] .3.152126 MD Bermudez8 [facility] 2021-08-30 2021-08-30 [facility] Fernanda, 1.2.840.1 [id number] [facility] 11:15:00 13:00:00 Procedure Ghada Lindsey 60098.1.1 ity of 3.412.2.7 [place] .3.862295 MD Bermudez8 [facility] 2021-08-30 2021-08-30 Outpatient FERNANDA [facility] MDA [id number] 10:55:39 10:55:39 GHADA lorenzana 2021-08-30 2021-08-30 Travel 1.2.840.1 1.2.128.530 [id number] [facility] 00:00:00 00:00:00 40218.1.1 350.1.13.41 ity of 3.412.2.[place].698 [place] .3.9488[place] 084.8 [facility] 2021-08-02 2021-08-02 Outpatient BETI [facility] [id number] OR 10:04:26 23:59:00 WILLIE lorenzana 2021-08-02 2021-08-02 [facility], 1.2.840.1 [id number] [facility] 10:04:26 23:59:00 Encounter Willie Ventura 80619.1.1 i ty of 3.412.2.7 [place] .3.812875 MD [facility] 2021-08-02 2021-08-02 [facility], 1.2.840.1 [id number] [facility] 09:00:00 10:14:53 Visit Enrique Carbone 41329.1.1 ity of 3.412.2.7 [place] .3.550383 MD [facility] 2021-08-02 2021-08-02 Outpatient RAUL ROCHA MDA [id number] 08:33:45 10:14:53 ENRIQUE lorenzana 2021-08-02 2021-08-02 Outpatient EL MDA [facility] [id number] MD 07:30:13 10:03:00 Ron [facility] 2021-08-02 2021-08-02 [facility] 1.2.840.1 [id number] [facility] 07:30:13 10:03:00 Encounter 17283.1.1 it y of 3.412.2.7 [place] .3.318123 MD Bermudez8 [facility] 2021-08-02 2021-08-02 Dipak Garcia, 1.2.840.1 [id number] Univers 00:00:00 00:00:00 Only Briana 24041.1.1 ity of 3.412.2.7 [place] .3.064365 MD Bermudez8 [facility] 2021-08-02 2021-08-02 [facility] 1.2.840.1 1.2.156.648 [id number] Univers 00:00:00 00:00:00 84748.1.1 350.1.13.41 ity of 3.412.2.7 [place].3.698 [place] .3.279121 084.8 MD Lu [facility] 2021-07-14 2021-07-14 Dipak Johnson, 1.2.840.1 [id number] Univers 00:00:00 00:00:00 Only Krystal 40754.1.1 it y of 3.412.2.7 [place] .3.628851 MD Lu [facility] 2021-07-12 2021-07-12 Bj Johnson, 1.2.840.1 [id number] Univers 00:00:00 00:00:00 Krystal 12463.1.1 it y of 3.412.2.7 [place] .3.149701 MD Lu [facility] 2021-07-10 2021-07-10 Bj Johnson, 1.2.840.1 [id number] Univers 00:00:00 00:00:00 Krystal 25868.1.1 it y of 3.412.2.7 [place] .3.818027 MD Lu [facility] 2021-06-28 2021-06-28 Infusion AjEnrique V. 1.2.840.1 [id number] [facility] 18:30:00 18:30:00 Nila Gauthier 87975.1.1 ity of 3.412.2.7 [place] .3.464378 MD Lu [facility] 2021-06-28 2021-06-28 Outpatient AJ [facility] MDA [id number] 09:06:55 12:00:37 ENRIQUE lorenzana 2021-06-28 2021-06-28 [facility] Aj 1.2.840.1 [id number] [facility] 08:30:00 09:02:57 Visit Enrique Carbone 10509.1.1 ity of 3.412.2.7 [place] .3.620187 MD Lu [facility] 2021-06-28 2021-06-28 Outpatient AJ [facility] MDA [id number] 08:04:47 09:02:57 ENRIQUE lorenzana 2021-06-28 2021-06-28 Dipak Johnson 1.2.840.1 [id number] Univers 00:00:00 00:00:00 Only Krystal 66760.1.1 it y of 3.412.2.7 [place] .3.428329 MD [facility] 2021-06-28 2021-06-28 Travel 1.2.840.1 1.2.478.472 [id number] [id number] [facility] 00:00:00 00:00:00 12712.1.1 350.1.13.41 ity of 3.412.2.7 [place].3.698 [place] .3.660674 084.8 MD [facility] 2021-06-27 2021-06-27 Outpatient AJ [facility] MDA [id number] 08:02:29 23:59:00 ENRIQUE lorenzana 2021-06-272021-06-27 [facility], 1.2.840.1 [id number] Univers 08:02:29 23:59:00 Encounter Enrique Carbone 57897.1.1 i ty of 3.412.2.7 [place] .3.666803 MD Lu [facility] 2021-06-27 2021-06-27 [facility] Alex, 1.2.840.1 [id number] [facility] 10:00:00 12:30:00 Procedure Krystal 39824.1.1 ity of 3.412.2.7 [place] .3.743215 MD Bermudez8 [facility] 2021-06-27 2021-06-27 Outpatient ITA JOHNSON MDA [facility] [id number] MD 08:36:31 08:36:31 KRYSTAL lorenzana 2021-06-27 2021-06-27 Travel 1.2.840.1 1.2.151.089 [id number] Univers 00:00:00 00:00:00 52918.1.1 350.1.13.41 ity of 3.412.2.7 [place].3.698 [place] .3.474687 084.8 MD Bermudez8 [facility] 2021-06-23 2021-06-23 [facility] Aj, 1.2.840.1 [id number] Univers 00:00:00 00:00:00 Enrique Carbone 39219.1.1 ity of 3.412.2.7 [place] .3.811300 MD Lu [facility] 2021-06-01 2021-06-01 Outpatient ITA OVALLE MDA MDA [id number] 13:05:19 23:59:00 JULIAN lorenzana 2021-06-01 2021-06-01 [facility] Julian Ovalle 1.2.840.1 [id number] [facility] 13:05:19 23:59:00 Stephani Hankins 51202.1.1 ity of 3.412.2.7 [place] .3.287617 MD Lu [facility] 2021-05-31 2021-05-31 Outpatient [facility] RAUL [id number] 15:00:00 23:59:00 ENRIQUE lorenzana 2021-05-31 2021-05-31 [facility], 1.2.840.1 [id number] [facility] 15:00:00 23:59:00 Encounter Enrique Carbone 63691.1.1 i ty of 3.412.2.7 [place] .3.098769 .8 [facility] 2021-05-31 2021-05-31 Infusion Aj Enrique More. 1.2.840.1 [id number] Univers 17:45:00 17:45:00 Artie Beaver 88842.1.1 ity of 3.412.2.7 [place] .3.970853 MD Bermudez8 [facility] 2021-05-31 2021-05-31 Outpatient [facility] RAUL [id number] 16:33:01 17:42:36 ENRIQUE lorenzana 2021-05-31 2021-05-31 [facility], 1.2.840.1 [id number] [facility] 16:00:00 16:34:47 Visit Enrique Carbone 95208.1.1 ity of 3.412.2.7 [place] .3.244397 MD Bermudez8 [facility] 2021-05-31 2021-05-31 Outpatient [facility] RAUL [id number] 15:21:21 16:34:47 ENRIQUE lorenzana 2021-05-31 2021-05-31 [facility] Manuel 1.2.840.1 [id number] [facility] 12:15:00 14:00:00 Procedure Julian Lindsey 81215.1.1 it y of 3.412.2.7 [place] .3.169548 .8 [facility] 2021-05-31 2021-05-31 Outpatient [facility] [id number] 11:48:46 11:48:46 JULIAN lorenzana 2021-05-31 2021-05-31 [facility], 1.2.840.1 [id number] Univers 00:00:00 00:00:00 Only Enrique Carbone 48071.1.1 ity of 3.412.2.7 [place] .3.211911 MD Lu [facility] 2021-05-31 2021-05-31 Travel 1.2.840.1 1.2.686.367 [id number] [id number] [facility] 00:00:00 00:00:00 35748.1.1 350.1.13.41 ity of 3.412.2.7 [place]7.3.698 [place] .3.684741 084.8 MD Lu [facility] 2021-05-11 2021-05-11 Outpatient ALEX [facility] [id number] OR 14:39:10 23:59:00 KRYSTAL Hair [facility] 2021-05-11 2021-05-11 [facility] Krystal Johnson 1.2.840.1 [id number] [facility] 14:39:10 23:59:00 [facility] Balbina Forrest 68221.1.1 ity of 3.412.2.7 [place] .3.278134 MD [facility] 2021-05-10 2021-05-11 [facility] Aj, 1.2.840.1 [id number] [facility] 17:45:00 09:20:33 Enrique Carbone 25283.1.1 ity of 3.412.2.7 [place] .3.238791 MD [facility] 2021-05-10 2021-05-11 Outpatient ITA ROCHA [facility] [id number] OR 14:25:52 09:20:33 ENRIQUE lorenzana 2021-05-11 2021-05-11 Travel 1.2.840.1 1.2.312.297 5708 [id number] [facility] 00:00:00 00:00:00 21007.1.1 350.1.13.41 ity of 3.412.2.7 [place].7.3.698 [place] .3.208225 084.8 MD .8 [facility] 2021-05-10 2021-05-10 [id number] 13:35:51 23:59:00 KRYSTAL lorenzana 2021-05-10 2021-05-10 [facility], 1.2.840.1 [id number] [facility] 13:35:51 23:59:00 Encounter Krystal 48423.1.1 ity of 3.412.2.7 [place] .3.495157 .8 [facility] 2021-05-10 2021-05-10 [facility], .2.840.1 [id number] [id number] [facility] 12:30:00 14:34:32 Visit Enrique Carbone 42704.1.1 ity of 3.412.2.7 [place] .3.086580 MD Bermudez8 [facility] 2021-05-10 2021-05-10 [facility] [id number] 12:08:26 14:34:32 ENRIQUE lorenzana 2021-05-10 2021-05-10 Outpatient [facility] [id number] [place] 11:06:43 13:34:00 ENRIQUE lorenzana 2021-05-10 2021-05-10 [facility], 1.2.840.1 [id number] [facility] 11:06:43 13:34:00 Encounter Enrique Carbone 98784.1.1 i ty of 3.412.2.7 [place] .3.154080 MD Bermudez8 [facility] 2021-05-10 2021-05-10 Nurse Ok, 1.2.840.1 [id number] Univers 00:00:00 00:00:00 Triage Beatriz Larson 46287.1.1 i ty of 3.412.2.7 [place] .3.269765 MD Bermudez8 [facility] 2021-05-10 2021-05-10 Orders Rani, 1.2.840.1 [id number] Univers 00:00:00 00:00:00 Only Ely Dixon 90227.1.1 ity of 3.412.2.7 [place] .3.290872 MD Lu [facility] 2021-05-10 2021-05-10 Travel 1.2.840.1 1.2.443.482 [id number] [id number] Univers 00:00:00 00:00:00 64160.1.1 350.1.13.41 ity of 3.412.2.7 [place]7.3.698 [place] .3.582417 084.8 MD Lu [facility] 2021-04-28 2021-04-28 Emergency ER MUNA, [facility] Emergency [id number] MD 15:13:00 20:07:00 WICHO Velasquez [facility] 2021-04-28 2021-04-28 Emergency Muna, 1.2.840.1 [id number] [facility] 15:13:00 20:07:00 Wicho 49840.1.1 ity of 3.412.2.7 [place] .3.601327 MD [facility] 2021-04-28 2021-04-28 Rachel Maldonado 1.2.840.1 [id number] [id number] Univers 00:00:00 00:00:00 Only 13112.1.1 ity of 3.412.2.7 [place] .3.043794 MD [facility] 2021-04-28 2021-04-28 Travel 1.2.840.1 1.2.059.298 [id number] [id number] Univers 00:00:00 00:00:00 79051.1.1 350.1.13.41 ity of 3.412.2.7 [place]7.3.698 [place] .3.302978 084.8 MD [facility] 2021-04-20 2021-04-20 Dipak Johnson 1.2.840.1 [id number] Univers 00:00:00 00:00:00 Only Krystal 24494.1.1 it y of 3.412.2.7 [place] .3.518518 MD [facility] 2021-04-20 2021-04-20 Refjuan jose Marr, 1.2.840.1 [id number] Univers 00:00:00 00:00:00 Donita Alvarez 83753.1.1 i ty of 3.412.2.7 [place] .3.862567 MD [facility] 2021-04-19 2021-04-19 Infusion Aj, 1.2.840.1 [id number] [facility] 13:30:00 16:25:25 Enrique Carbone 61891.1.1 ity of 3.412.2.7 [place] .3.398122 MD Bermudez8 [facility] 2021-04-19 2021-04-19 Outpatient ITA ROCHA MDA MDA [id number] 13:20:11 16:25:25 ENRIQUE espinoza 2021-04-18 2021-04-19 Telemedici Aj 1.2.840.1 [id number] [facility] 15:30:00 10:32:51 ne Enrique Carbone 80015.1.1 ity of 3.412.2.7 [place] .3.911127 MD Bermudez8 [facility] 2021-04-18 2021-04-19 Outpatient ITA ROCHA MDA MDA [id number] 15:28:52 10:32:51 ENRIQUE espinoza 2021-04-19 2021-04-19 Travel 1.2.840.1 1.2.902.298 4899 [id number] Univers 00:00:00 00:00:00 11742.1.1 350.1.13.41 ity of 3.412.2.7 [place].3.698 [place] .3.295123 084.8 MD Lu [facility] 2021-04-18 2021-04-18 Orders Aj 1.2.840.1 [id number] Univers 00:00:00 00:00:00 Only Enrique Carbone 77207.1.1 ity of 3.412.2.7 [place] .3.611637 MD [facility] 2021-04-18 2021-04-18 Orders Binania, 1.2.840.1 [id number] Univers 00:00:00 00:00:00 Only Ely Dixon 22865.1.1 ity of 3.412.2.7 [place] .3.414743 MD Bermudez8 [facility] 2021-04-17 2021-04-17 Outpatient ITA ROCHA MDA [facility] [id number] 13:41:01 23:59:00 ENRIQUE lorenzana 2021-04-17 2021-04-17 [facility], 1.2.840.1 [id number] [facility] 13:41:01 23:59:00 Encounter Enrique Carbone 89178.1.1 i ty of 3.412.2.7 [place] .3.953929 MD Bermudez8 [facility] 2021-04-17 2021-04-17 Ancillary Alex, 1.2.840.1 [id number] Univers 15:00:00 17:30:00 Procedure Krystal 72046.1.1 ity of 3.412.2.7 [place] .3.024127 MD Bermudez8 [facility] 2021-04-17 2021-04-17 Travel 1.2.840.1 1.2.577.758 [id number] [id number] Univers 00:00:00 00:00:00 00577.1.1 350.1.13.41 ity of 3.412.2.7 [place]7.3.698 [place] .3.267976 084.8 MD Bermudez8 [facility] 2021-04-14 2021-04-14 Orders Alex, 1.2.840.1 [id number] Univers 00:00:00 00:00:00 Only Krystal 96114.1.1 it y of 3.412.2.7 [place] .3.315534 MD Lu [facility] 2021-01-24 2021-01-24 Outpatient ITA ROCHA MDA [facility] [id number] 12:26:17 12:26:17 ENRIQUE lorenzana 2021-01-15 2021-01-15 [facility] 1.2.840.114 [id number] Univers 10:38:18 23:59:00 Encounter Kirill Rubio 350.1.13.10 ity of [place]7.2.686 [place] [facility] [id number] [facility] [address] 2021-01-15 2021-01-15 Urgent Provider, [facility] 1.2.840.114 [id number] Univers 09:49:20 10:27:24 Care Kirill Delgado [facility] 350.1.13.10 ity of [place] 4.2.7.2.686 Ned as Professio [phone] [facility] [address] 2021-01-15 2021-01-15 Outpatient Alondra DELGADO [facility] [id number] Univers 09:40:00 09:40:00 KIRILL ity of [facility] 2021-01-15 2021-01-15 Letter Doctor HENRIQUE 1.2.840.114 [id number] Univers 00:00:00 00:00:00 (Out) Unassigned, ANABELL 350.1.13.10 ity of [place] [facility] 4.2.7.2.686 Ned as [phone] [facility] [address] 2021-01-03 2021-01-03 Outpatient ITA ROCHA, RAUL MDA [id number] 12:47:49 14:35:44 ENRIQUE lorenzana 2020-06-20 2020-06-20 Outpatient ITA ALEXRAUL DE OLIVEIRA MDA [id number] 12:10:01 12:10:01 KRYSTAL lorenzana 2020-06-20 2020-06-20 Outpatient ITA ALEX, MDA MDA [id number] 07:26:24 07:26:24 KRYSTAL lorenzana 2020-06-17 2020-06-17 Outpatient ITA ALEX, RAUL MDA [id number] 14:38:24 23:59:00 KRYSTAL heath n 2020-06-17 2020-06-17 Outpatient ITA AJ, RAUL MDA [id number] 11:55:45 14:40:26 ENRIQUE lorenzana 2020-06-17 2020-06-17 Outpatient [facility], MDA MDA [id number] 13:03:43 13:03:43 ENRIQUE lorenzana 2020-06-17 2020-06-17 Outpatient EL FOSSELLA, MDA MDA [id number] 13:03:39 13:03:39 ENRIQUE lorenzana 2020-06-17 2020-06-17 Outpatient [facility], MDA MDA [id number] 13:03:35 13:03:35 ENRIQUE lorenzana 2020-06-17 2020-06-17 [facility] MDA [id number] 12:09:04 12:09:04 ENRIQUE lorenzana 2020-06-17 2020-06-17 Outpatient EL FOSSELLA, MDA MDA [id number] 12:08:59 12:08:59 ENRIQUE lorenzana 2020-06-17 2020-06-17 Outpatient MDA MDA [id number] 11:46:50 11:47:28 Ron lorenzana 2020-06-15 2020-06-15 Outpatient [facility], MDA MDA [id number] 09:13:21 09:31:15 ENRIQUE lorenzana 2020-06-08 2020-06-08 Outpatient [facility] [id number] [facility] 00:00:00 00:00:00 Results Test Description Test Time Test Comments Results Result Comments Source Free T4 2022-04-11 16:32:57 Test Item Value Reference Range Interpretation Comme nts T4 Free (test code = 3024-7) 1.36 ng/dL 0.93-1.70 [facility] 16:32:54 Test Item Value Reference Range Interpretation Comments TSH (test code = 1.39 See_Comment [Automated message] The 40240-6) system which ge nerated this result transmit taco reference range : 0.27 - 4.20 mcunit/mL. The reference range was not used to interpr et this result as cooper l/abnormal. [facility] AmericaFractionated [id number] 16:28:00 Test Item Value Reference Range Interpretation Comments Bili Total 0.5 mg/dL See_Comment Indocyanine Gre en (test code = (ICG) may cause 1975-2) falsely elevate d bilirubin resul ts. Total and direc t bilirubin must not be measured from s amples containing indocyanine gre en. False elevation of total bilirubin can be seen in caroline ents with IgG concentrations above 28 g/L. [Autom ated message] The sy stem which generated this result transmit taco reference range : <=1.2. The refe rence range was not u sed to interpret this result as normal/abnor mal. Bili Direct <0.2 See_Comment Indocyanine Gre en (test code = (ICG) may cause 1968-04) falsely elevate d bilirubin resul ts. Total and direc t bilirubin must not be measured from s amples containing indocyanine gre en. [Automated mess age] The system whic h generated this result transmitted ref erence range: <=0.3 mg /dL. The reference r reginald was not used to interpret this result as normal/abnor mal. Bili Indirect See Note 0.0-0.9 Unable to calc ulate (test code = Indirect Biliru bin 1970-10) result due to s ome parameters are outside reporta ble range EMILY (test code Includes Albumin, = EMILY) Alkaline Phosphatase, AST, ALT, Total Bilirubin, Calcium, Chloride, Bicarbonate (C02), Creatinine, Glucose, Potassium, Protein, Sodium, BUN. [facility] DecaturElectrolyte [id number] 16:27:59 Test Item Value Reference Range Interpretation Comments Sodium Lvl (test code 137 See_Comment [Auto mated = 6941-2) message] The system which generated this result transmitted reference range : 136 - 145 mEq/L . The reference range was not used to interpr et this result as normal/abnormal . Potassium Lvl (test 4.8 See_Comment [Automa taco code = 2823-3) message] The system which generated this result transmitted reference range : 3.5 - 5.1 mEq/L . The reference range was not used to interpr et this result as normal/abnormal . Chloride (test code = 102 See_Comment [Auto mated 2074-0) message] The system which generated this result transmitted reference range : 98 - 107 mEq/L. The reference range was not used to interpr et this result as normal/abnormal . CO2 (test code = 33 See_Comment H [Automated 2028-06) message] The system which generated this result transmitted reference range : 22 - 29 mEq/L. The reference range was not used to interpr et this result as normal/abnormal . Anion Gap (test code 2 See_Comment L [Autom ated = 34913-0) message] The system which generated this result transmitted reference range : 4 - 14 mEq/L. T he reference range was not used to interpret this result as normal/abnormal . EMILY (test code = EMILY) Includes Albumin, Alkaline Phosphatase, AST, ALT, Total Bilirubin, Calcium, Chloride, Bicarbonate (C02), Creatinine, Glucose, Potassium, Protein, Sodium, BUN. Lab Interpretation Abnormal (test code = 00269-3) [facility] AmericaAlbumin [id number] 16:27:58 Test Item Value Reference Range Interpretation Comments Albumin Lvl 4.7 See_Comment [Automated (test code = message] The sy stem 4769) which generated this result transmitted reference range : 3.5 - 5.2 gm/dL . The reference r reginald was not used to interpret this result as normal/abnormal . EMILY (test code = Includes Albumin, EMILY) Alkaline Phosphatase, AST, ALT, Total Bilirubin, Calcium, Chloride, Bicarbonate (C02), Creatinine, Glucose, Potassium, Protein, Sodium, BUN. [facility] AmericaGlomerular Filtration Rate 2022-04-11 16:27:56 Test Item Value Reference Interpretation Comments Range eGFR-AA (test code = 65 See_Comment Normal eGFR: >= 60 42199-9) mL/min/1.73 m2N ote: The eGFR is calculated usin g the CKD-EPI equation. The e GFR declines with a ge. eGFR <60 mL/min/1.73 m2 is considered as "decreased". Th is equation should only be used fo r patients 18 and older. Socorroin g to the National Ki dney Foundation's Ki dney Disease Outcome Quality Initiat zulma (KDOQI) classification and 2012 Kidney Dis ease Improving Globa l Outcomes (KDIGO ) Clinical Practi ce Guideline, the stage of CKD sh ould be categorized based on estima taco GFR. Stage Description GFR mL/min/1.73 m21 Normal or high GFR >=902 Mildly decrease d GFR 60-893a Mildly to moderately decreased GFR 45-593b Moderat alfonso to severely decreased GFR 30-444 Severely decreased GFR 15-295 Kidney failure < 15 [Automated mess age] The system [employer] generated this result transmit taco reference range : >=60 mL/min/1.7 3 sq. m. The reference range was not used to interpret this result as normal/abnormal . eGFR-KATE (test code 57 See_Comment L Normal e GFR: >= 60 = 66372-7) mL/min/1.73 m2N ote: The eGFR is calculated usin g the CKD-EPI equation. The e GFR declines with a ge. eGFR <60 mL/min/1.73 m2 is considered as "decreased". Th is equation should only be used fo r patients 18 and older. Accordin g to the National Ki dney [employer]'s dney Disease Outcome Quality Initiat zulma (KDOQI) classification and 2012 Kidney Dis ease Improving Globa l Outcomes (KDIGO ) Clinical Practi ce Guideline, the stage of CKD sh ould be categorized based on estima taco GFR. Stage Description GFR mL/min/1.73 m21 Normal or high GFR >=902 Mildly decrease d GFR 60-893a Mildly to moderately decreased GFR 45-593b Moderat alfonso to severely decreased GFR 30-444 Severely decreased GFR 15-295 Kidney failure < 15 [Automated mess age] The system [employer] generated this result transmit taco reference range : >=60 mL/min/1.7 3 sq. m. The reference range was not used to interpret this result as normal/abnormal . EMILY (test code = Includes Albumin, EMILY) Alkaline Phosphatase, AST, ALT, Total Bilirubin, Calcium, Chloride, Bicarbonate (C02), Creatinine, Glucose, Potassium, Protein, Sodium, BUN. Lab Interpretation Abnormal (test code = 35920-0) [facility] [place] [id number] 16:27:55 Test Item Value Reference Range Interpretation Comments Magnesium (test code = 50871-4) 2.1 mg/dL 1.6-2.6 [facility] [id number] 16:27:53 Test Item Value Reference Range Interpretation Comments Alk Phos (test code = 119 U/L 35-104 H 6768-6) EMILY (test code = EMILY) Includes Albumin, Alkaline Phosphatase, AST, ALT, Total Bilirubin, Calcium, Chloride, Bicarbonate (C02), Creatinine, Glucose, Potassium, Protein, Sodium, BUN. Lab Interpretation (test Abnormal code = 34922-0) [facility] [id number] 16:27:52 Test Item Value Reference Range Interpretation Comments Total Protein (test 7.5 g/dL 6.4-8.3 code = 2885-2) EMILY (test code = EMILY) Includes Albumin, Alkaline Phosphatase, AST, ALT, Total Bilirubin, Calcium, Chloride, Bicarbonate (C02), Creatinine, Glucose, Potassium, Protein, Sodium, BUN. [facility] AmericaAspartate Aminotransferase 2022-04-11 16:27:51 Test Item Value Reference Range Interpretation Comments AST (test code 23 U/L See_Comment [Automated m essage] = 1920-8) The system [employer] generated this result transmit taco reference range : <=32. The refer ence range was not u sed to interpret th is result as normal/abnormal . EMILY (test code Includes Albumin, = EMILY) Alkaline Phosphatase, AST, ALT, Total Bilirubin, Calcium, Chloride, Bicarbonate (C02), Creatinine, Glucose, Potassium, Protein, Sodium, BUN. [facility] AmericaCalcium [id number] 16:27:50 Test Item Value Reference Range Interpretation Comments Calcium Lvl (test 10.0 mg/dL 8.4-10.2 code = 70998-7) EMILY (test code = EMILY) Includes Albumin, Alkaline Phosphatase, AST, ALT, Total Bilirubin, Calcium, Chloride, Bicarbonate (C02), Creatinine, Glucose, Potassium, Protein, Sodium, BUN. [facility] AmericaALT2022-06-15 16:27:48 Test Item Value Reference Range Interpretation Comments ALT (test code 14 U/L See_Comment [Automated m essage] = 1742-6) The system [employer] generated this result transmit taco reference range : <=33. The refer ence range was not u sed to interpret th is result as normal/abnormal . EMILY (test code Includes Albumin, = EMILY) Alkaline Phosphatase, AST, ALT, Total Bilirubin, Calcium, Chloride, Bicarbonate (C02), Creatinine, Glucose, Potassium, Protein, Sodium, BUN. [facility].Serum [id number] 16:27:47 Test Item Value Reference Range Interpretation Comments Creatinine (test code = 1.05 mg/dL 0.51-0.95 H 2160-0) EMILY (test code = EMILY) Includes Albumin, Alkaline Phosphatase, AST, ALT, Total Bilirubin, Calcium, Chloride, Bicarbonate (C02), Creatinine, Glucose, Potassium, Protein, Sodium, BUN. Lab Interpretation (test Abnormal code = 85593-9) [facility] AmericaBUN2022-06-15 16:27:46 Test Item Value Reference Range Interpretation Comments BUN (test code = 13 mg/dL 6-23 3094-0) EMILY (test code = Includes Albumin, Alkaline EMILY) Phosphatase, AST, ALT, Total Bilirubin, Calcium, Chloride, Bicarbonate (C02), Creatinine, Glucose, Potassium, Protein, Sodium, BUN. [facility] AmericaGlucose [id number] 16:27:45 Test Item Value Reference Range Interpretation Comments Glucose Level 97 mg/dL 70-99 Effective 05/23, (test code = the glucose 2345-7) reference inter vals have been updat ed based on [place] an Diabetes Association guidelines (Standards of Medical Care in Diabetes 2016. Diabetes Care 2 016; 39: S13-S22).Fastin g blood glucose:Normal: 70-99 mg/dLImpa ired fasting glucose (increased risk for diabetes or pre-diabetes): 100-125 mg/dLDiabetes mellitus: >/=1 26 mg/dL Random bl ood glucose:Normal: 70-199 mg/dLNot e: Random glucose >100 mg/dL is associ ated with increased risk for diabetes EMILY (test code = Includes Albumin, EMILY) Alkaline Phosphatase, AST, ALT, Total Bilirubin, Calcium, Chloride, Bicarbonate (C02), Creatinine, Glucose, Potassium, Protein, Sodium, BUN. [facility] AmericaDifferential2022-06-15 15:52:17 Test Item Value Reference Range Interpretation Comments Neutrophil % (test code = 73.5 % 42.0-66.0 H 770-8) Lymphocyte % (test code = 17.9 % 24.0-44.0 L 736-9) Monocyte % (test code = 7.5 % 2.0-7.0 H 5905-5) Eosinophil % (test code = 0.4 % 1.0-4.0 L 713-8) Basophil % (test code = 0.4 % 0.0-1.0 31957-0) IGRE % (test code = 0.3 % 0.0-0.4 IGRE % c ount 17007-3) includes Metamyelocytes, Myelocytes, and Promyelocytes. Neutrophil Abs (test code 5.30 K/uL 1.70-7.30 = 751-8) Lymphocyte Abs (test code 1.29 K/uL 1.00-4.80 = 731-0) Monocyte Abs (test code = 0.54 K/uL 0.08-0.70 742-7) Eosinophil Abs (test code 0.03 K/uL 0.04-0.40 L = 711-2) Basophil Abs (test code = 0.03 K/uL 0.00-0.10 704-7) IG Abs (test code = 0.02 K/uL 0.00-0.04 25271-4) Lab Interpretation (test Abnormal code = 46632-8) [facility] [place].[id number] 15:52:12 Test Item Value Reference Range Interpretation Comments WBC (test code = 7.2 K/uL 4.0-11.0 6690-2) RBC (test code = 789-8) 3.93 See_Comment L [Au tomated message] The system [employer] generated this result transmitted ref erence range: 4.00 - 5 .50 M/uL. The refer ence range was not u sed to interpret this result as normal/abnor mal. Hgb (test code = 718-7) 12.1 See_Comment [Au tomated message] The system [employer] generated this result transmitted ref erence range: 12.0 - 1 6.0 gm/dL. The refe rence range was not u sed to interpret this result as normal/abnor mal. Hct (test code = 35.7 % 37.0-47.0 L 4544-3) MCV (test code = 787-2) 91 fL 82-98 MCH (test code = 785-6) 30.8 pg 27.0-31.0 MCHC (test code = 33.9 See_Comment [Automate d message] 786-4) The system [employer] generated this result transmitted ref erence range: 31.0 - 3 6.0 gm/dL. The refe rence range was not u sed to interpret this result as normal/abnor mal. RDW-SD (test code = 43.8 fL 35.1-46.3 35113-6) RDW-CV (test code = 13.2 % 12.0-15.5 788-0) Platelet count (test 205 K/uL 140-440 code = 777-3) MPV (test code = 9.6 fL 4.0-10.4 14337-9) INRBC (test code = 0.0 % See_Comment The INRBC (instrument 15492-6) NRBC) value ref lects the enumeration of nucleated red b lood cells contained in a 200uL sampleof whole blood analyzed by the instrument. Thi s value maydiffer from the NRBC value repo rted in a manual differential,wh ich is based on a 100 cell differential. [Automated mess age] The system whic h generated this result transmitted ref erence range: <=0.0. T he reference range was not used to int erpret this result as normal/abnormal . Lab Interpretation Abnormal (test code = 69477-1) [facility] AmericaLipase [id number] 17:49:56 Test Item Value Reference Range Interpretation Comments Lipase Lvl (test code = 3040-3) 49 U/L 13-60 [facility] AmericaAmylase [id number] 17:49:54 Test Item Value Reference Range Interpretation Comments Amylase Lvl (test code = 1798-8) 59 U/L 28-100 [facility] AmericaGeneral Laboratory Add-On Test 2021-12-06 18:40:52 Test Item Value Reference Range Interpretation Comments Ordered (test code = 6568) Test Added Test Needed (test code = amylase, lipase 2074) [facility] AmericaPrepare RBC:ATC-Main, 1 Units 2021-05-11 21:38:28 Test Item Value Reference Range Interpretation Comments PRBC Product Ready 1 Red Blood Cells (test code = Available - 25746-5) Order Form 03 when ready for product issue. Unit Number (test [id number] code = 7002) Product Code (test [id number] code = 700) Unit Expiration [id number] (test code = 473661) Unit Blood Type 600 (test code = 7004) Product Code Text RBCIRLR Aph ACDA AS1 (test code = Bag 1 ) Crossmatch [id number] Expiration Date (test code = ) Unit Irradiated IRRADIATED (test code = 464062) Dispense Status ISSUED (test code = 7001) Unit Blood Type A Negative (test code = 7005) Product Clinical Research Associate .BPAM ____ Location (test ___ code = 499416) ___ ____ [facility] AmericaRBC Product Ready for Clinical Research Associate 2021-05-11 13:01:12 Test Item Value Reference Range Interpretation Comments PRBC Product Ready B2 Blood Bank Product is ready for for Clinical Research Associate (test picker and packer on May 11, code = 870612) 2020 08:00:57 CDT. [facility] of AmericaTMP Interpretation Antibody Screen [id number] 02:04:44 Test Item Value Reference Range Interpretation Comments TMP Auto Neg At the present ABSC Interp time, patient (test code = plasma shows no FE RNANDO 7535) evidence of RBC JOSEFINADic tated by: alloantibodies. TIEN ROCHA,Dictat ed Date/Time: 04.27 21:04 PM CDT Transcribed Date/Time: 04.27 21:04 PM CDTElectronical ly Signed By: ALONZO ROCHA, on 05.10.2021 21:0 4 PM [facility] of AmericaTMP Interpretation Crossmatch 2021-05-11 02:04:43 Test Item Value Reference Range Interpretation Comments TMP XM Interp RBC units (test code = crossmatched for 7566) transfusion appear ___TIEN cabezas. JOSEFINA,Dictat ed by: Mindy CHUN ed Date/Time: 05.10.2021 21:0 4 PM CDT Transcrib ed Date/Time: 05.10.2021 21:0 4 PM CDTElectronical ly Signed By: ALONZO ROCHA, on 05.10.2021 21:0 4 PM [facility] of AmericaConfirm [id number] 21:37:44 Test Item Value Reference Range Interpretation Comments ABORh Confirm. (test code = 882-1) A NEG [facility] AmericaAntibody [id number] 21:26:25 Test Item Value Reference Range Interpretation Comments ABSC. (test code = 890-4) Negative ABSC [facility] AmericaABORh2021-07-14 21:26:24 Test Item Value Reference Range Interpretation Comments ABORh. (test code = 882-1) A NEG [facility] AmericaClot Expiration [id number] 21:26:21 Test Item Value Reference Range Interpretation Comments T & S Expiration (test code = 05/13/2021 5318) [facility] AmericaRespiratory Viral Panel + COVID-19, Nasopharyngeal [id number] 22:14:52 Test Item Value Reference Range Interpretation Comments RMP Source (test code = Not Applicable 8653) Adenovirus (test code = Not Detected Not Detected 4748) Coronavirus 229E (test Not Detected Not Detected code = 5349) Coronavirus HKU1 (test Not Detected Not Detected code = 5350) Coronavirus NL63 (test Not Detected Not Detected code = 5351) Coronavirus OC43 (test Not Detected Not Detected code = 5352) COVID19 (SARS-CoV-2) Not Detected Not Detected (test code = 76088-5) Human Metapneumovirus Not Detected Not Detected (test code = 6401) Human Not Detected Not Detected Rhinovirus/Enterovirus (test code = 7212) Influenza A (test code Not Detected Not Detected = 5618) Influenza A H1 (test Not Detected Not Detected code = 5619) Influenza A H1 2009 Not Detected Not Detected (test code = 5620) Influenza A H3 (test Not Detected Not Detected code = 5621) Influenza B (test code Not Detected Not Detected = 5622) Parainfluenza 1 (test Not Detected Not Detected code = 6779) Parainfluenza 2 (test Not Detected Not Detected code = 6780) Parainfluenza 3 (test Not Detected Not Detected code = 6781) Parainfluenza 4 (test Not Detected Not Detected code = 6782) Respiratory Syncytial Not Detected Not Detected Virus (test code = 7157) Bordetella Not Detected Not Detected Parapertussis (test code = 70038) Bordetella pertussis Not Detected Not Detected (test code = 4854) Chlamydiophila Not Detected Not Detected pneumoniae (test code = 5139) Mycoplasma pneumoniae Not Detected Not Detected (test code = 6203) EMILY (test code = EMILY) The BioFire RP2.1 is a real-time, nested multiplexed polymerase chain reaction test designed to simultaneously identify nucleic acids from 22 different viruses and bacteria associated with respiratory tract infection, including SARS-CoV-2, from a single nasopharyngeal swab (FISH PACKER) specimen. Specifically, the SARS-CoV-2 primers contained in the BioFire RP2.1 are designed to detect RNA from the SARS-CoV-2 in nasopharyngeal swabs in transport media from patients who are suspected of COVID-19 by their healthcare provider. Results must be interpreted within the context of all relevant clinical and laboratory findings and should not form the sole basis for a diagnosis or treatment decision. This assay has been approved by the FDA for use only under Emergency Use Authorization (EUA) in laboratories that have been CLIA-certified to perform moderate-complexity and high-complexity tests. The Microbiology Laboratory at [facility], CLIA Accreditation #[id number] and CAP Accreditation #[id number], verified the performance characteristics of this assay. [facility] at [facility] performs the assay using the GLIIF System. Internal controls are used to monitor all stages of the test process. [facility] AmericaPartial Thromboplastin Time 2021-04-28 21:48:48 Test Item Value Reference Range Interpretation Comments aPTT (test code = 35.8 See_Comment [Automate d message] The 6608) system which ge nerated this result transmit taco reference range : 24.7 - 36.8 second(s). The reference range was not used to interpr et this result as cooper l/abnormal. [facility] of AmericaProthrombin Time with [id number] 21:48:47 Test Item Value Reference Range Interpretation Comments PT (test code = 6746) 14.0 See_Comment H [Auto mated message] The system [employer] generated this result transmitted ref erence range: 11.5 - 1 3.9 second(s). The reference range was not used to int erpret this result as normal/abnormal . INR (test code = 5973) 1.16 0.90-1.10 H Lab Interpretation (test Abnormal code = 61009-9) [facility] of AmericaD-[id number] 21:48:46 Test Item Value Reference Range Interpretation Comments D-Dimer (test code = 2.34 See_Comment H The cut off value for 5419) exclusion of ve nous thromboembolism is <0.51 mcg/mL FEUs (fi brinogen equivalent unit s). [Automated mess age] The system which ge nerated this result tra nsmitted reference range : 0.10 - 0.50 mcg/ml FEU . The reference range was not used to interpr et this result as normal/abnormal . Lab Interpretation Abnormal (test code = 39969-5) [facility] AmericaPhosphorus [id number] 21:26:50 Test Item Value Reference Range Interpretation Comments Phosphorus (test code = 6817) 3.0 mg/dL 2.5-4.5 [facility] AmericaNT-Pro BNP (In-House)2021-04-28 21:25:19 Test Item Value Reference Range Interpretation Comments NT ProBNP (test code = 211 pg/mL See_Comment H [Aut omated message] 3387) The system [employer] generated this result transmit taco reference range : <=125. The refe rence range was not u sed to interpret th is result as normal/abnormal . Lab Interpretation (test Abnormal code = 23773-5) [facility] AmericaCardiac [id number] 21:21:40 Test Item Value Reference Range Interpretation Comments CK (test code = 5206) 39 U/L 26-192 CK MB (test code = <2.0 See_Comment [Automat ed message] The 5209) system which [employer] nerated this result tra nsmitted reference range : <=5.3 ng/mL. The refe rence range was not used to interpret this result as normal/abnormal . Troponin T (test code 7 ng/L See_Comment < 19 ng/L = 9384) Sugges t retest at [address] to rule out myocardial infarction >= 1 9 to <=52 ng/L Possible myocardial inju ry. Suggest retest at 3 hours. - a change of < 20 ng/L, retest at 6 earl rs - a c hange of >= 20 ng/L, sugges tive of myocardial infarction > 52 ng/L Suggestive of m yocardial infarction Crit ical value will be reporte d when cTnT is > 52 ng/L an d only reported for th e first in a series. Hemol yzed specimens with Hemolysis Index >100 (100 mg/dl or moderate hemoly sis) may cause interfere nces and falsely low res ults. [Automated mess age] The system which [employer] nerated this result tra nsmitted reference range : <=18. The reference range was not used to interpr et this result as cooper l/abnormal. [facility] Glucose [id number] 20:06:11 Test Item Value Reference Range Interpretation Comments POC Glucose (test 91 mg/dL 70-99 Capillary blood code = 68571-3) samples, e.g . obtained by fingerstick, may have inaccurate results in patients wit h decreased perip heral blood flow. Met hod description: Al l results are michelet sured using Electroch emistry test methodolog y. The glucose in the sample mixes with the reagents on the test str ip. The reaction produc es an electric curren t. The amount of curre nt produced is proportional to the glucose concent ration in the blood. PO Sample Type Venous (test code = 9554) Performing Lab [facility] (test code = [facility] [address]) Clinical Lab, [address] [facility], [place], [place] [address]; Grape Crusher: Edna Leon MD [facility] of AmericaXR FOOT 3+ VW [id number] 15:52:59 No acute osseous abnormality. Thin subcentimeter radiopaque foreign body adjacent to the fifth MTP joint.XR FOOT 3+ VW LEFT INDICATION: left foot pain COMPARISON: None FINDINGS: Thin subcentimeter radiopaque foreign body in the soft tissues medial tothe fifth MTP joint. Diffuse osteopenia. No acute f racture or dislocation.Mild first MTP joint osteoarthrosis. [facility], Radiant Results Inft User - 01/15/2021 10:54 AM CDTXR FOOT 3+ VW LEFTINDICATION: left foot pain COMPARISON: NoneFINDINGS:Thin subcentimeter radiopaque foreign body in the soft tissues medial tothe fifth MTP joint. Diffuse osteopenia. 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 Clinical correlation is recommended.94694, 42578, 77793 x 2Concern for primary lung cancer with metastasis to the brain, long history of smoking (2PPD since age 13), significant daily alcohol consumption.Lung, right lower lobe A. Received in formalin labeled with the patient's name, accession number and "lung, right lower lobe" are multiple conroy, thread-like soft tissue cores measuring up to 0.7 cm in greatest length, which are filtered and submitted in toto in A1. PA/ewPerformed.The interpretation of this case included the use of immunohistochemistry or special stains.O72-bfgvjzwbKFI0-pgtjlrno positiveNapsinA- positiveControl Slides Examined: In-house known positive controls were evaluated along with the test tissue. These control slides run alongside of the patients sample show appropriate staining. Internal positive and negative controls when available are evaluated Immunohistochemistry technical testing was performed at [facility], Pathology Laboratory where it was developed and its performance characteristics were determined. It has not been cleared or approved by the U.S. Food and Drug Administration. The FDA has determined that such clearance or approval is not necessary.The test is used for clinical purposes. It should not be regarded as investigational or for research. This laboratory is certified under the Clinical Laboratory Improvement Amendments of 1988 (CLIA-88) as qualified to perform high complexity clinical laboratory testing.[facility], Department of Pathology, [address] [place] [address], [facility], [address] [place] [address], [facility], [facility], [address] [place] [address], ESRN-GLUCOSE [id number] 15:36:00 Test Item Value Reference Range Interpretation Comments POC-GLUCOSE METER 173 mg/dL 70-110 H : TESTED A T [facility] 6720 (BEAKER) (test code = [facility]) [address]: Sailmaker/Techni earle ID = [id number] for [place] JOSE MIAQUEEN SILVERMAN POCT-GLUCOSE [id number] 10:51:00 Test Item Value Reference Range Interpretation Comments POC-GLUCOSE METER 119 mg/dL 70-110 H : TESTED A T [facility] 67[address] (BEAKER) (test code = [facility], 153) [address]: Sailmaker/Techni earle ID = [id number] for [place] LLIAMS, MARSHALL POCT-GLUCOSE [id number] 07:37:00 Test Item Value Reference Range Interpretation Comments POC-GLUCOSE METER 133 mg/dL 70-110 H : TESTED A T [facility] 67[address] (BEAKER) (test code = [facility], 153) [address]: Sailmaker/Techni earle ID = [id number] for QUEEN QUIÑONEZ [id number] 06:32:00 Test Item Value Reference Range Interpretation Comments MAGNESIUM (BEAKER) (test code = 2.0 mg/dL 1.6-2.6 627) Sailmaker ID - EDASIBASIC METABOLIC [id number] 06:32:00 Test Item Value Reference Range Interpretation Comments SODIUM (BEAKER) 135 meq/L 136-145 L (test code = 381) POTASSIUM (BEAKER) 3.8 meq/L 3.5-5.1 (test code = 379) CHLORIDE (BEAKER) 102 meq/L 98-107 (test code = 382) CO2 (BEAKER) (test 23 meq/L 22-29 code = 355) BLOOD UREA NITROGEN 18 mg/dL 7-21 (BEAKER) (test code = 354) CREATININE (BEAKER) 0.73 mg/dL 0.57-1.25 (test code = 358) GLUCOSE RANDOM 122 mg/dL 70-105 H (BEAKER) (test code = 652) CALCIUM (BEAKER) 9.3 mg/dL 8.4-10.2 (test code = 697) EGFR (BEAKER) (test 81 mL/min/1.73 ESTIMA TACO GFR IS code = 1092) sq m NOT ACCURATE CREATININE CLEARANCE IN PREDICTING GLOMERULAR FILTRATION RATE . ESTIMATED GFR I S NOT APPLICABLE FOR DIALYSIS PATIEN TS. Sailmaker ID - EDASICBC W/PLT COUNT & AUTO [id number] 06:05:00 Test Item Value Reference Range Interpretation Comments WHITE BLOOD CELL COUNT (BEAKER) 12.5 K/ L 3.5-10.5 H (test code = 775) RED BLOOD CELL COUNT (BEAKER) 4.77 M/ L 3.93-5.22 (test code = 761) HEMOGLOBIN (BEAKER) (test code = 14.3 GM/DL 11.2-15.7 410) HEMATOCRIT (BEAKER) (test code = 43.1 % 34.1-44.9 411) MEAN CORPUSCULAR VOLUME (BEAKER) 90.4 fL 79.4-94.8 (test code = 753) MEAN CORPUSCULAR HEMOGLOBIN 30.0 pg 25.6-32.2 (BEAKER) (test code = 751) MEAN CORPUSCULAR HEMOGLOBIN CONC 33.2 GM/DL 32.2-35.5 (BEAKER) (test code = 752) RED CELL DISTRIBUTION WIDTH 13.4 % 11.7-14.4 (BEAKER) (test code = 412) PLATELET COUNT (BEAKER) (test 391 K/CU MM 150-450 code = 756) MEAN PLATELET VOLUME (BEAKER) 9.7 fL 9.4-12.3 (test code = 754) NUCLEATED RED BLOOD CELLS 0 /100 WBC 0-0 (BEAKER) (test code = 413) NEUTROPHILS RELATIVE PERCENT 90 % (BEAKER) (test code = 429) LYMPHOCYTES RELATIVE PERCENT 6 % (BEAKER) (test code = 430) MONOCYTES RELATIVE PERCENT 3 % (BEAKER) (test code = 431) EOSINOPHILS RELATIVE PERCENT 0 % (BEAKER) (test code = 432) BASOPHILS RELATIVE PERCENT 0 % (BEAKER) (test code = 437) NEUTROPHILS ABSOLUTE COUNT 11.29 K/ L 1.56-6.13 H (BEAKER) (test code = 670) LYMPHOCYTES ABSOLUTE COUNT 0.79 K/ L 1.18-3.74 L (BEAKER) (test code = 414) MONOCYTES ABSOLUTE COUNT (BEAKER) 0.35 K/ L 0.24-0.36 (test code = 415) EOSINOPHILS ABSOLUTE COUNT 0.00 K/ L 0.04-0.36 L (BEAKER) (test code = 416) BASOPHILS ABSOLUTE COUNT (BEAKER) 0.02 K/ L 0.01-0.08 (test code = 417) IMMATURE GRANULOCYTES-RELATIVE 1 % 0-1 PERCENT (BEAKER) (test code = 2801) POCT-GLUCOSE [id number] 21:33:00 Test Item Value Reference Range Interpretation Comments POC-GLUCOSE METER 139 mg/dL 70-110 H : TESTED A T [facility] 67[address] (BEAKER) (test code = [place], 1538) [address]: Sailmaker/Techni earle ID = [id number] for EMMANUEL, OTIS TTE RAD, CHEST, PA OR AP, 1 [id number] 20:16:00Reason for exam:->Post Lung BiopsyShould this be performed at the bedside?->YesFINAL REPORT TECHNIQUE: Frontal view of the chest. INDICATION: Post Lung Biopsy COMPARISON: CT chest earlier today. FINDINGS: LINES/TUBES: None. LUNGS: The lungs are well inflated and clear. Redemonstration of right lower lobe lung mass measuring 6 cm.. PLEURA: No pneumothorax or significant pleural effusion. HEART AND MEDIASTINUM: The cardiomediastinal silhouette is within normal limits. SOFT TISSUES AND BONES: Unremarkable. IMPRESSION:No pneumothorax status post right lungbiopsy. Six and Right lower lobe lung mass.. Signed: Alfred Delatorre Verified Date/Time: 05/31/2020 20:16:53 Reading Location: [address] Transitional Reading Room CT, BIOPSY, [id number] 18:19:00Please call Violetta Tafoya [phone] if this should be done by pulmReason for exam:->60yo with lung lesion (>90 pack year history) and brain mass, suspicious for primary lung cancerFINAL REPORT CT-guided core biopsy dated 05/31/2020 Name of practitioner performing procedure:Gagandeep Gar M.D. Names of sales assistant entertainment and media:None Procedure: Core biopsy of the right lower mass Preprocedure diagnosis:Right lower lobe mass Postprocedure diagnosis:Right lower lobe mass Specimens removed:Right lower lobe mass Estimated blood loss:None Complication:None Conscious sedation: 1 mgVersed and [address] Gagandeep Gar was responsible for the moderate sedation. Total sedation time: 20 minutes Anesthesia: 1% Xylocaine local anesthesia. Graft/Implants:None Technique: This exam was performed according to our departmental dose-optimization program, which includes automated exposure control, adjustment of the mA and/or kV according to patient size and/or use of interactive reconstruction technique. After obtaining informed consent, CT-guided core biopsy of the right lower pleural mass was performed under usual sterile technique. After placing a 19- gauge coaxial needle in the mass, core biopsy was performed with a 20-gauge core needle with 3 passes. Impression: Successful CT-guided core biopsy of the right lower lobe mass. Signed: Gagandeep Gar Verified Date/Time: 05/31/2020 18:19:49 Reading Location: [facility] B1 C013Y CT Body Reading Room POCT-GLUCOSE [id number] 11:37:00 Test Item Value Reference Range Interpretation Comments POC-GLUCOSE METER 120 mg/dL 70-110 H : TESTED A T [facility] 6720 (BEAKER) (test code = [facility] Alondra [facility], 1538) [id number]: Sailmaker/Techni earle ID = [id number] for BRYAN BEY POCT-GLUCOSE [id number] 06:32:00 Test Item Value Reference Range Interpretation Comments POC-GLUCOSE METER 125 mg/dL 70-110 H : TESTED A T [facility] 6720 (BEAKER) (test code = [facility], 1538) [id number]: Sailmaker/Techni earle ID = [id number] for EDE BUCHANAN CBC W/PLT COUNT & AUTO [id number] 05:28:00 Test Item Value Reference Range Interpretation Comments WHITE BLOOD CELL COUNT (BEAKER) 13.6 K/ L 3.5-10.5 H (test code = 775) RED BLOOD CELL COUNT (BEAKER) 4.36 M/ L 3.93-5.22 (test code = 761) HEMOGLOBIN (BEAKER) (test code = 13.4 GM/DL 11.2-15.7 410) HEMATOCRIT (BEAKER) (test code = 38.8 % 34.1-44.9 411) MEAN CORPUSCULAR VOLUME (BEAKER) 89.0 fL 79.4-94.8 (test code = 753) MEAN CORPUSCULAR HEMOGLOBIN 30.7 pg 25.6-32.2 (BEAKER) (test code = 751) MEAN CORPUSCULAR HEMOGLOBIN CONC 34.5 GM/DL 32.2-35.5 (BEAKER) (test code = 752) RED CELL DISTRIBUTION WIDTH 13.3 % 11.7-14.4 (BEAKER) (test code = 412) PLATELET COUNT (BEAKER) (test 324 K/CU MM 150-450 code = 756) MEAN PLATELET VOLUME (BEAKER) 9.4 fL 9.4-12.3 (test code = 754) NUCLEATED RED BLOOD CELLS 0 /100 WBC 0-0 (BEAKER) (test code = 413) NEUTROPHILS RELATIVE PERCENT 91 % (BEAKER) (test code = 429) LYMPHOCYTES RELATIVE PERCENT 5 % (BEAKER) (test code = 430) MONOCYTES RELATIVE PERCENT 2 % (BEAKER) (test code = 431) EOSINOPHILS RELATIVE PERCENT 0 % (BEAKER) (test code = 432) BASOPHILS RELATIVE PERCENT 0 % (BEAKER) (test code = 437) NEUTROPHILS ABSOLUTE COUNT 12.35 K/ L 1.56-6.13 H (BEAKER) (test code = 670) LYMPHOCYTES ABSOLUTE COUNT 0.71 K/ L 1.18-3.74 L (BEAKER) (test code = 414) MONOCYTES ABSOLUTE COUNT (BEAKER) 0.30 K/ L 0.24-0.36 (test code = 415) EOSINOPHILS ABSOLUTE COUNT 0.00 K/ L 0.04-0.36 L (BEAKER) (test code = 416) BASOPHILS ABSOLUTE COUNT (BEAKER) 0.02 K/ L 0.01-0.08 (test code = 417) IMMATURE GRANULOCYTES-RELATIVE 2 % 0-1 H PERCENT (BEAKER) (test code = 2801) [id number] 05:01:00 Test Item Value Reference Range Interpretation Comments MAGNESIUM (BEAKER) (test code = 2.0 mg/dL 1.6-2.6 627) Sailmaker MERISSA JACKSON WBASIC METABOLIC [id number] 05:01:00 Test Item Value Reference Range Interpretation Comments SODIUM (BEAKER) 132 meq/L 136-145 L (test code = 381) POTASSIUM (BEAKER) 4.2 meq/L 3.5-5.1 (test code = 379) CHLORIDE (BEAKER) 101 meq/L 98-107 (test code = 382) CO2 (BEAKER) (test 23 meq/L 22-29 code = 355) BLOOD UREA NITROGEN 14 mg/dL 7-21 (BEAKER) (test code = 354) CREATININE (BEAKER) 0.64 mg/dL 0.57-1.25 (test code = 358) GLUCOSE RANDOM 127 mg/dL 70-105 H (BEAKER) (test code = 652) CALCIUM (BEAKER) 9.0 mg/dL 8.4-10.2 (test code = 697) EGFR (BEAKER) (test 94 mL/min/1.73 ESTIMA TACO GFR IS code = 1092) sq m NOT ACCURATE CREATININE CLEARANCE IN PREDICTING GLOMERULAR FILTRATION RATE . ESTIMATED GFR I S NOT APPLICABLE FOR DIALYSIS PATIEN TS. Sailmaker ID - MANUEL KENDALLODIUM, RANDOM [id number] 03:25:00 Test Item Value Reference Range Interpretation Comments SODIUM URINE (BEAKER) (test code = 84 meq/L 243) Reference Range: No NormalsOperator MERISSA JACKSON WCT, [id number] 02:58:00 Lung and brain mass, staging CTFINAL REPORT CLINICAL HISTORY: Non-small cell lung cancer staging FINDINGS: Multiple axial images of the chest, abdomen and pelvis were performed after the uncomplicated administ ration of IV contrast. Oral contrast was not given. This exam was performed according to our departmental dose-optimization program, which includes automated exposure control, adjustment of the mA and/or kV according to patient size and/or use of the iterative reconstruction technique. Comparison: CT chest dated May 30, 2020. Chest: Lung parenchyma: Redemonstrated, lobulated mass in the right lowerlobe measuring 6.2 x 4.5 x 6.4 cm. 3 to 4 mm noncalcified nodule in the right middle lobe. Moderate centrilobular emphysematous changes in both lungs. Biapical pleural scarring. Pleural effusion: None.Pneumothorax: None. Tracheobronchial tree: No significant findings. Pulmonary vasculature: No significant findings. Cardiac contours and great vessels: Atherosclerotic calcification of the coronary arteries, aorta and great vessels arising from the arch. Mediastinum: No significant findings. Lymph Nodes: Enlarged subcarinal lymph node measuring 2 cm in short axis diameter Skeleton: No lytic or blastic lesion in the thoracic skeleton. Abdomen and pelvis: Liver: No significant findings. Gallbladder and biliary tree: No significant findings. Spleen: No significant findings. Adrenal Glands: No significant findings. Kidneys and ureters: No significant findings. Stomach and Duodenum: No significant findings. Pancreas: No significant findings. Bowel: No significant findings. Appendix: Normal. Bladder: No significant findings. Major vascular structures: Atherosclerotic calcifications Reproductive organs: No significant findings. Other: No free air, fluid or adenopathy Skeleton: No acute bony abnormality. IMPRESSION: 6.2 x 4.5 x 6.4 cm lobulated right lower lobe mass consistent with bronchogenic malignancy. There is an enlarged subcarinal lymph node, possibly reflecting metastatic disease. A 3 to 4 mm noncalcified nodule in the right middle lobe is nonspecific. Metastatic disease is not excluded. Attention on follow-up. Pulmonary emphysema. No CT evidence of metastatic disease to the abdomen or pelvis. Signed: Marc Oquendo MDReport Verified Date/Time: 05/31/2020 02:58:32 CT, CHEST, WITH [id number] 02:58:00Lung and brain mass, staging CTFINAL REPORT CLINICAL HISTORY: Non-small cell lung cancer staging FINDINGS: Multiple axial images of the chest, abdomen and pelvis were performed after the uncomplicated administration of IV contrast. Oral contrast was not given. This exam was performed according to our [facility] dose-optimization program, which includes automated exposure control, adjustment of the mA and/or kV according to patient size and/or use of the iterative reconstruction technique. Comparison: CT chest dated May 30, 2020. Chest: Lung parenchyma: Redemonstrated, lobulated mass in the right lowerlobe measuring 6.2 x 4.5 x 6.4 cm. 3 to 4 mm noncalcified nodule in the right middle lobe. Moderate centrilobular emphysematous changes in both lungs. Biapical pleural scarring. Pleural effusion: None.Pneumothorax: None. Tracheobronchial tree: No significant findings. Pulmonary vasculature: No significant findings. Cardiac contours and great vessels: Atherosclerotic calcification of the coronary arteries, aorta and great vessels arising from the arch. Mediastinum: No significant findings. Lymph Nodes: Enlarged subcarinal lymph node measuring 2 cm in short axis diameter Skeleton: No lytic or blastic lesion in the thoracic skeleton. Abdomen and pelvis: Liver: No significant findings. Gallbladder and biliary tree: No significant findings. Spleen: No significant findings. Adrenal Glands: No significant findings. Kidneys and ureters: No significant findings. Stomach and Duodenum: No significant findings. Pancreas: No significant findings. Bowel: No significant findings. Appendix: Normal. Bladder: No significant findings. Major vascular structures: Atherosclerotic calcifications Reproductive organs: No significant findings. Other: No free air, fluid or adenopathy Skeleton: No acute bony abnormality. IMPRESSION: 6.2 x 4.5 x 6.4 cm lobulated right lower lobe mass consistent with bronchogenic malignancy. There is an enlarged subcarinal lymph node, possibly reflecting metastatic disease. A 3 to 4 mm noncalcified nodule in the right middle lobe is nonspecific. Metastatic disease is not excluded. Attention on follow-up. Pulmonary emphysema. No CT evidence of metastatic disease to the abdomen or pelvis. Signed: Marc Oquendo MDReport Verified Date/Time: 05/31/2020 02:58:32 Electronically sig ravi by: MARC OQUENDO M.D. on 05/31/2020 02:58 AMOSMOLALITY, [id number] 02:23:00 Test Item Value Reference Range Interpretation Comments OSMOLALITY URINE (BEAKER) (test 591 mOsm/kg 50-1,200 mOsm/kg code = 614) POCT-GLUCOSE [id number] 23:32:00 Test Item Value Reference Range Interpretation Comments POC-GLUCOSE METER 126 mg/dL 70-110 H : TESTED A T [facility] 6720 (BEAKER) (test code = [facility] [place], 1538) [address]: Sailmaker/Techni earle ID = [id number] for EDE BUCHANAN MR, BRAIN, [id number] 11:59:00STEALTH protocolFINAL REPORT MR, BRAIN, WITH \\T\\ WITHOUT CONTRAST INDICATION: Headache, chronic, with new featuresLeft insular mass Technique: MRI of the brain utilizing axial T1, T2, FLAIR, GRE, DWI, sagittal T1; and postgadolinium axial, sagittal, and coronal T1-weighted images. COMPARISON: None FINDINGS:Peripherally enhancing lesion in the infiltrative T2/FLAIR hyperintense signal extendingto the subinsular white matter and the left lateral ventricle margin with consequent 1 mm rightward midline shift at the level of the third ventricle. There is associated restricted diffusion, however,intralesional enhancement and nonuniform restricted diffusion are more suggestive of tumor (as opposed to intraparenchymal abscess). Remainder the brain parenchyma is unremarkable. No restricted diffusion to suggest recent ischemic insult. No abnormal susceptibility. No hydrocephalus. Orbits are within normal limits. No obstructive paranasal sinus disease. Additional findings: None. IMPRESSION: Peripherally enhancing lesion in the infiltrative T2/FLAIR hyperintense signal extending to the subinsular white matter and the left lateral ventricle margin with consequent 1 mm rightward midline shift at the level of the third ventricle. There is associated restricted diffusion, however, intralesional enh ancement and nonuniform restricted diffusion are more suggestive of tumor such as glioma (as opposedto intraparenchymal abscess). Signed: Jannie Culp MDReport Verified Date/Time: 05/30/2020 11:59:19 Reading Location: [address] Neuro Reading Room SARS-COV2/RT-PCR ([facility])2020-05-30 10:28:00 Test Item Value Reference Range Interpretation Comments SARS-COV2/RT-PCR (test Negative Not Detected, Negative, code = 6389028) See external report for linked test SARS-COV-2 PERFORMING LAB [facility] (test code = 6027018) Negative result for this test determines that SARS-CoV-2 RNA was not present in the specimen above the Limit of Detection (LOD). However, Negative results do not preclude SARS-CoV-2 infection and should not be used as the sole basis for treatment or patient management decisions. Negative results mustbe combined with clinical observations, patient history, and epidemiological information. A false negative result may occur if a specimen is improperly collected, transported or handled. A false negative result should be considered if patient's recent exposures or clinical presentation indicate that COVID-19 (SARS-CoV-2) is likely and diagnostic tests for other causes of illness are negative. Re-testing should be considered in cases of suspected false negatives.The limit of detection for this assay is 800 copies/mL.This SARS CoV-2 test is a real-time RT-PCR test intended for the qualitative detection of nucleic acid from SARS-CoV-2 in a nasopharyngeal swab specimen collected from individuals susp ected of COVID-19 by their healthcare provider.This test has not been Food and Drug Administration (FDA) cleared or approved. This is a modified version of an approved Emergency Use Authorization (EUA) and is in the process of review by the FDA. Once authorized by the FDA, the issued EUA will be effective until the declaration that circumstances exist justifying the authorization of the emergency use of in vitro diagnostic tests for detection and/or diagnosis of COVID-19 is terminated under Section 564(b)(2) of the Act or the EUA is revoked under Section 564(g) of the Act.Fact Sheet for Healthcare Providers:https://www.[employer]sites/default/files/product/documents/Fact_Camelia balderramaj_QQ_Ztudnnimz_Futz_BRQW-AhV-1.pdfFact Sheet for Healthcare Patients:https://www.[employer]sites/default/files/product/ documents/Issp_Nhvyo_Flnqkgzj_Vhbw_WOGR-WgR-4.pdfPerforming Laboratory:[facility].[place], [place] [id number] A1C 2020-05-30 08:59:00 Test Item Value Reference Range Interpretation Comments HEMOGLOBIN A1C (BEAKER) (test code = 5.3 % 4.3-6.1 368) OSMOLALITY, [id number] 08:14:00 Test Item Value Reference Range Interpretation Comments OSMOLALITY, SERUM (BEAKER) (test 278 mOsm/kg 275-295 code = 615) CT, CHEST, WITHOUT [id number] 07:30:00FINAL REPORT TECHNIQUE: CT of the chest WITHOUT intravenous contrast. Dose mod ulation, iterative reconstruction, and/or weight-based adjustment of the mA/kV was utilized to reduce the radiation dose to as low as reasonably achievable. INDICATION: 60-year-old woman with lung nodule. COMPARISON: None. FINDINGS: ABSENCE OF INTRAVENOUS CONTRAST DECREASES SENSITIVITY FOR DETECTIONOF FOCAL LESIONS AND VASCULAR PATHOLOGY. LINES/TUBES: None. LUNGS AND AIRWAYS: Small amount of mucusin the trachea. Paraseptal and centrilobular emphysematous changes, most prominent in the lung apices. Biapical pleural-parenchymal scarring, right greater than left. Focal mild groundglass opacity in the posterior right upper lobe may represent atelectasis. 6.3 x 6.9 x 5.1 cm masslike consolidation in the periphery of the right lower lobe with surrounding reticular and groundglass opacities. 3 mm subpleural noncalcified nodule in the left upper lobe (axial lung window series image 13). 3-4 mm noncalcified nodules in the right middle lobe (axial lung window series images 34, 36, and 44). Subcentimeter calcified granuloma in the left lower lobe. PLEURA: Pleural spaces are clear. HEART AND MEDIASTINUM: Visualized thyroid gland is normal. No significant mediastinal, hilar, or axillary lymphadenopathy. Heart and pericardium are within normal limits. Mild atherosclerotic calcifications in the thoracic aorta and coronary arteries. BONES AND SOFT TISSUES: Degenerative changes of the visualized spine. Soft tissues are unremarkable. UPPER ABDOMEN: Unremarkable. IMPRESSION:6.9 cm masslike consolidationin the right lower lobe, suspicious for primary lung neoplasm. Few indeterminate 3-4 mm pulmonary nod ules. Signed: Rajeev Maradiaga MDReport Verified Date/Time: 05/30/2020 07:30:24 Reading Location: [facility] Diagnostic Imaging Reading Room - [place] [address] 1129 [id number] 07:16:00 Test Item Value Reference Range Interpretation Comments MAGNESIUM (BEAKER) (test code = 1.9 mg/dL 1.6-2.6 627) Sailmaker ID - GENNAYIMI LBASIC METABOLIC [id number] 07:16:00 Test Item Value Reference Range Interpretation Comments SODIUM (BEAKER) 132 meq/L 136-145 L (test code = 381) POTASSIUM (BEAKER) 4.1 meq/L 3.5-5.1 (test code = 379) CHLORIDE (BEAKER) 99 meq/L 98-107 (test code = 382) CO2 (BEAKER) (test 23 meq/L 22-29 code = 355) BLOOD UREA NITROGEN 8 mg/dL 7-21 (BEAKER) (test code = 354) CREATININE (BEAKER) 0.62 mg/dL 0.57-1.25 (test code = 358) GLUCOSE RANDOM 131 mg/dL 70-105 H (BEAKER) (test code = 652) CALCIUM (BEAKER) 9.3 mg/dL 8.4-10.2 (test code = 697) EGFR (BEAKER) (test 98 mL/min/1.73 ESTIMA TACO GFR IS code = 1092) sq m NOT ACCURATE CREATININE CLEARANCE IN PREDICTING GLOMERULAR FILTRATION RATE . ESTIMATED GFR I S NOT APPLICABLE FOR DIALYSIS PATIEN TS. Sailmaker ID - PIYIMI LLIPID [id number] 07:16:00 Test Item Value Reference Range Interpretation Comments TRIGLYCERIDES (BEAKER) (test code = 59 mg/dL 540) CHOLESTEROL (BEAKER) (test code = 244 mg/dL 631) HDL CHOLESTEROL (BEAKER) (test code 74 mg/dL = 976) LDL CHOLESTEROL CALCULATED (BEAKER) 158 mg/dL (test code = 633) Triglyceride Reference Range: Low Risk <150 Borderline 150-199 High Risk 200-499 Very High Risk >=500Cholesterol Reference Range: Low Risk <200 Borderline 200-239 High Risk >240HDL Cholesterol Reference Range: Low Risk >=60 High Risk <40LDL Cholesterol Reference Range: Optimal <100 Near Optimal 100-129 Borderline 130-159 High 160-189 Very High >=190 Sailmaker ID - PIAYALHEPATIC FUNCTION [id number] 07:16:00 Test Item Value Reference Range Interpretation Comments TOTAL PROTEIN (BEAKER) (test code = 7.6 gm/dL 6.0-8.3 770) ALBUMIN (BEAKER) (test code = 1145) 4.0 g/dL 3.5-5.0 BILIRUBIN TOTAL (BEAKER) (test code 0.4 mg/dL 0.2-1.2 = 377) BILIRUBIN DIRECT (BEAKER) (test 0.2 mg/dL 0.1-0.5 code = 706) ALKALINE PHOSPHATASE (BEAKER) (test 93 U/L 40-150 code = 346) AST (SGOT) (BEAKER) (test code = 20 U/L 5-34 353) ALT (SGPT) (BEAKER) (test code = 13 U/L 6-55 347) Sailmaker ID - MAYNOR LCBC W/PLT COUNT & AUTO [id number] 05:07:00 Test Item Value Reference Range Interpretation Comments WHITE BLOOD CELL COUNT (BEAKER) 9.1 K/ L 3.5-10.5 (test code = 775) RED BLOOD CELL COUNT (BEAKER) 4.31 M/ L 3.93-5.22 (test code = 761) HEMOGLOBIN (BEAKER) (test code = 13.0 GM/DL 11.2-15.7 410) HEMATOCRIT (BEAKER) (test code = 38.3 % 34.1-44.9 411) MEAN CORPUSCULAR VOLUME (BEAKER) 88.9 fL 79.4-94.8 (test code = 753) MEAN CORPUSCULAR HEMOGLOBIN 30.2 pg 25.6-32.2 (BEAKER) (test code = 751) MEAN CORPUSCULAR HEMOGLOBIN CONC 33.9 GM/DL 32.2-35.5 (BEAKER) (test code = 752) RED CELL DISTRIBUTION WIDTH 13.3 % 11.7-14.4 (BEAKER) (test code = 412) PLATELET COUNT (BEAKER) (test 292 K/CU MM 150-450 code = 756) MEAN PLATELET VOLUME (BEAKER) 9.3 fL 9.4-12.3 L (test code = 754) NUCLEATED RED BLOOD CELLS 0 /100 WBC 0-0 (BEAKER) (test code = 413) NEUTROPHILS RELATIVE PERCENT 93 % (BEAKER) (test code = 429) LYMPHOCYTES RELATIVE PERCENT 6 % (BEAKER) (test code = 430) MONOCYTES RELATIVE PERCENT 1 % (BEAKER) (test code = 431) EOSINOPHILS RELATIVE PERCENT 0 % (BEAKER) (test code = 432) BASOPHILS RELATIVE PERCENT 0 % (BEAKER) (test code = 437) NEUTROPHILS ABSOLUTE COUNT 8.42 K/ L 1.56-6.13 H (BEAKER) (test code = 670) LYMPHOCYTES ABSOLUTE COUNT 0.51 K/ L 1.18-3.74 L (BEAKER) (test code = 414) MONOCYTES ABSOLUTE COUNT (BEAKER) 0.06 K/ L 0.24-0.36 L (test code = 415) EOSINOPHILS ABSOLUTE COUNT 0.00 K/ L 0.04-0.36 L (BEAKER) (test code = 416) BASOPHILS ABSOLUTE COUNT (BEAKER) 0.02 K/ L 0.01-0.08 (test code = 417) IMMATURE GRANULOCYTES-RELATIVE 1 % 0-1 PERCENT (BEAKER) (test code = 2801) PROTHROMBIN [id number] 05:04:00 Test Item Value Reference Range Interpretation Comments PROTIME (BEAKER) (test code = 12.9 seconds 11.9-14.2 759) INR (BEAKER) (test code = 370) 1.0 <=5.9 Effective 03/25/2019: PT Reference Range ChangeNew: 11.9-14.2 Previous: 11.7- 14.7RECOMMENDED COUMADIN/WARFARIN INR THERAPY RANGESSTANDARD DOSE: 2.0-3.0 Includes: PROPHYLAXIS for venous thrombosis, systemic embolization; TREATMENT for venous thrombosis and/or pulmonary embolus.HIGH RISK: Target INR is2.5-3.5 for patients wiht mechanical heart valves.
[2022-04-12 16:55] LABS: Absolute Lymphocytes (CBC) 0.5 K/uL (0.7-4.9); Hematocrit 36.1 % (36.0-45.0); Lymphocytes % 5.9 % (15.3-44.8); MPV 7.3 fL (7.6-11.3); RBC Red Blood Cell Count 4.03 M/uL (3.86-4.86)
[2022-04-12 16:58] LABS: Protime INR 1.01
--- NOTE | 2022-04-12 17:01 | RAD REPORT ---
EXAM DESCRIPTION: RAD - Chest Single View - 04/12/2022 4:49 pm CLINICAL HISTORY: FEVER COMPARISON: Chest Single View dated 05/29/2020; Head Brain Wo Cont dated 05/29/2020 FINDINGS: Lines: None. Lungs: Previously noted masslike opacity in the right lower lobe is no longer identified. There is an irregular dense opacity that may represent scarring. Background of emphysema. No definite acute proc ess. Apical scarring. Specifically, no evidence of a consolidative pneumonia. Pleural: No significant pleural effusions or pneumothorax. Cardiac: The heart size is within normal limits. Bones: No acute fractures. Other: IMPRESSION: Changes but no definite acute process identified.
[2022-04-12 17:11] LABS: Albumin 3.7 g/dL (3.4-5.0); Bilirubin Total 0.9 mg/dL (0.2-1.0); Potassium 3.3 mmol/L (3.5-5.1); Protein, Total 6.8 g/dL (6.4-8.2)
[2022-04-12] MEDS ORDERED: ACETAMINOPHEN 500 MG TAB ONE (18:02)
[2022-04-12 18:08] LABS: Blood Morphology Comment NOT SEEN (NOT SEEN); Platelet Estimate ADEQ; White Blood Cell Scan OK (OK)
[2022-04-12 18:36] LABS: Urine Bacteria <20 /HPF (<20); Urine RBC <5 /HPF (NONE SEEN)
--- NOTE | 2022-04-12 19:18 | EDPHYS ---
Physician Documentation [facility] Name: Emily Ly Age: 62 yrs Sex: Female : 1960 Arrival Date: 04/12/2022 Time: 16:11 Bed 20 Private MD: ED Physician Nicolas Johnson HPI: 04/12 16:28 This 62 yrs old Female presents to ER via Wheelchair with complaints of Shaking. ms3 16:28 The patient reports fever, that was measured at 101.3 degrees Fahrenheit. Onset: The ms3 symptoms/episode began/occurred acutely, 45 minute(s) ago. Modifying factors: there are no obvious modifying factors, Recent medications: none Denies contact with similarly ill indivduals. Denies recent travel. Associated signs and symptoms: Pertinent positives: chills. Severity of symptoms: At their worst the symptoms were severe in the emergency department the symptoms are unchanged. Patient states that she developed shaking and chills after filling her truck with diesel.. Historical: - Allergies: 16:18 No Known Allergies; aa5 - PMHx: 16:18 Hypertension; Lung Cancer; aa5 - PSHx: 16:18 None; aa5 - Immunization history:: Adult Immunizations unknown. - Social history:: Smoking status: Patient/guardian denies using tobacco. ROS: 16:28 Constitutional: fever, chills Neck: Negative for injury, pain, and swelling, ms3 Cardiovascular: Negative for chest pain, and palpitations. Respiratory: Negative for shortness of breath, cough, wheezing, and pleuritic chest pain, Abdomen/GI: nausea, no vomiting Skin: Negative for injury, rash, and discoloration. 16:28 All other systems are negative. Exam: 16:28 Constitutional: This is a well developed, well nourished patient who is awake, alert, ms3 and in no acute distress. Head/Face: Normocephalic, atraumatic. Neck: Trachea midline, no cervical lymphadenopathy. Supple, full range of motion without nuchal rigidity, or vertebral point tenderness. No Meningismus. Chest/axilla: Normal chest wall appearance and motion. Nontender with no deformity. Cardiovascular: Tachycardic, normal rhythm with a normal S1 and S2. No gallops, murmurs, or rubs. Normal PMI, no JVD. No pulse deficits. Skin: Warm, dry with normal turgor. Normal color with no rashes, no lesions, and no evidence of cellulitis. Psych: Awake, alert, with orientation to person, place and time. Behavior, mood, and affect are within normal limits. 16:40 ECG was reviewed by the Attending Physician. ms3 Vital Signs: 16:12 BP 115 / 73; Pulse 123; Resp 26 S; Temp 101.3(O); Pulse Ox 96% on R/A; Weight 73.94 kg aa5 (R); Height 5 ft. 7 in. (170.18 cm) (R); 18:51 BP 131 / 57; Pulse 95; Resp 18; Temp 99.3(O); stephenson 19:34 BP 141 / 86; Pulse 97; Resp 18; Pulse Ox 97% on R/A; vc1 16:12 Body Mass Index 25.53 (73.94 kg, 170.18 cm) aa5 MDM: 16:28 Differential diagnosis: viral Infection, bacterial infection, URI, bronchitis, ms3 pneumonia UTI. 16:31 Patient medically screened. ms3 19:27 Data reviewed: vital signs, nurses notes, lab test result(s), radiologic studies, plain ms3 films. Data reviewed: and as a result, I will discharge patient. Data interpreted: Pulse oximetry: on room air is 96 %. Interpretation: normal. Counseling: I had a detailed discussion with the patient and/or guardian regarding: the historical points, exam findings, and any diagnostic results supporting the discharge/admit diagnosis, lab results, radiology results, the need for outpatient follow up, to return to the emergency department if symptoms worsen or persist or if there are any questions or concerns that arise at home. ED course: Discussed labs, X-ray, and PE findings with patient. Patient to follow up with her PMD in 2-3 days. Patient understands/ agrees with plan. All questions answered. Return precautions discussed to include worsening symptoms, or any other concerns. On re-evaluation patient is improved, A/O x4, nad, non-toxic, ambulatory in ED, speaking full sentences.. 04/12 16:22 Order name: Blood Culture Adult (2) ms3 04/12 16:22 Order name: CBC with Diff; Complete Time: 18:12 ms3 04/12 16:22 Order name: CMP; Complete Time: 17:13 ms3 04/12 16:22 Order name: Lactate; Complete Time: 17:13 ms3 04/12 16:22 Order name: Protime (+inr); Complete Time: 17:13 ms3 04/12 16:22 Order name: Ptt, Activated; Complete Time: 17:13 ms3 04/12 16:22 Order name: Urine Microscopic Only; Complete Time: 19:01 ms3 04/12 16:22 Order name: Chest Single View XRAY; Complete Time: 17:13 ms3 04/12 16:28 Order name: Flu; Complete Time: 17:54 ms3 04/12 16:28 Order name: COVID-19 SARS RT PCR (Document "Date of Onset" if Symptomatic); Complete ms3 Time: 18:12 16 18:08 Order name: CBC Smear Scan; Complete Time: 18:12 EDMS 04/12 18:39 Order name: Urine Culture EDMS 04/12 16:22 Order name: Cardiac monitoring; Complete Time: 16:53 ms3 04/12 16:22 Order name: EKG - Nurse/Tech; Complete Time: 16:46 ms3 04/12 16:22 Order name: IV Saline Lock - Large Bore; Complete Time: 16:53 ms3 04/12 16:22 Order name: Labs collected and sent; Complete Time: 16:53 ms3 04/12 16:22 Order name: O2 Per Protocol; Complete Time: 16:53 ms3 04/12 16:22 Order name: O2 Sat Monitoring; Complete Time: 16:53 ms3 EC:40 Rate is 111 beats/min. Rhythm is regular. QRS [place] is Normal. QRS interval is normal. ms3 Clinical impression: Sinus tachycardia and Non-specific ST/T changes. Interpreted by me. Administered Medications: 17:59 Drug: Tylenol 1000 mg Route: PO; stephenson 17:59 Follow up: Response: No adverse reaction stephenson Disposition Summary: 04/12/22 19:17 Discharge Ordered Location: Home ms3 Condition: Stable ms3 Diagnosis - Fever, unspecified ms3 Followup: ms3 - With: See, Evin, DO - When: 2 - 3 days - Reason: Recheck today's complaints Discharge Instructions: - Discharge Summary Sheet ms3 - Fever, Adult, Anfa-oe-Owto ms3 Forms: - Medication Reconciliation Form ms3 - Thank You Letter ms3 - Antibiotic Education ms3 - Prescription Opioid Use ms3 Signatures: Dispatcher [employer] Carmella Lantigua, RN RN aa5 Nicolas Johnson, DO ms3 Au-Alva Aburto RN RN stephenson
--- NOTE | 2022-04-12 19:18 | ER ---
Nurse's Notes [facility] Name: Emily Ly Age: 62 yrs Sex: Female : 1960 Arrival Date: 04/12/2022 Time: 16:11 Bed 20 Private MD: Diagnosis: Fever, unspecified Presentation: 04/12 16:12 Initial Sepsis Screen: Does the patient meet any 2 criteria? RR > 20 per min. HR > 90 aa5 bpm. Yes Does the patient have a suspected source of infection? Yes:. 16:12 Acuity: DIOGO 2 aa5 16:12 Chief complaint: Patient states: "I was just pumping gas when I started shaking really aa5 bad". Temperature currently 101.3*F. Pt denies any other symptoms but reports she had chemotherapy yesterday for lung cancer. Coronavirus screen: fever. Ebola Screen: Patient denies travel to an Ebola-affected area in the 21 days before illness onset. Risk Assessment: Do you want to hurt yourself or someone else? Patient reports no desire to harm self or others. Onset of symptoms was April 12, 2022. 16:12 Method Of Arrival: Wheelchair aa5 Historical: - Allergies: 16:18 No Known Allergies; aa5 - PMHx: 16:18 Hypertension; Lung Cancer; aa5 - PSHx: 16:18 None; aa5 - Immunization history:: Adult Immunizations unknown. - Social history:: Smoking status: Patient/guardian denies using tobacco. Screenin:54 Abuse screen: Denies threats or abuse. Denies injuries from another. Nutritional stephenson screening: No deficits noted. Tuberculosis screening: No symptoms or risk factors identified. Fall Risk None identified. Assessment: 16:54 General: Appears uncomfortable, Behavior is anxious. Pain: Denies pain. Neuro: Level of stephenson Consciousness is awake, alert, obeys commands, Oriented to person, place, time, situation, Reports weakness chills and shakiness. Cardiovascular: Reports. Musculoskeletal: Reports. 19:34 Reassessment: Patient and/or family updated on plan of care and expected duration. Pain vc1 level reassessed. Patient is alert, oriented x 3, equal unlabored respirations, skin warm/dry/pink. Patient states feeling better. Patient states symptoms have improved. Vital Signs: 16:12 BP 115 / 73; Pulse 123; Resp 26 S; Temp 101.3(O); Pulse Ox 96% on R/A; Weight 73.94 kg aa5 (R); Height 5 ft. 7 in. (170.18 cm) (R); 18:51 BP 131 / 57; Pulse 95; Resp 18; Temp 99.3(O); stephenson 19:34 BP 141 / 86; Pulse 97; Resp 18; Pulse Ox 97% on R/A; vc1 16:12 Body Mass Index 25.53 (73.94 kg, 170.18 cm) aa5 ED Course: 16:11 Patient arrived in ED. mr 16:14 Arm band placed on. aa5 16:18 Triage completed. aa5 16:21 Alva Galloway, LUDWIG is Primary Nurse. stephenson 16:22 Nicolas Johnson DO is Attending Physician. ms3 16:22 Isak Hopson PA is PHCP. [facility] 16:22 Nicolas Johnson DO is Pronouncing Provider. [facility] 16:50 Chest Single View XRAY In Process Unspecified. EDMS 16:54 Patient has correct armband on for positive identification. Bed in low position. stephenson 16:54 Blood Culture Adult (2) Sent. stephenson 16:54 CBC with Diff Sent. stephenson 16:54 COVID-19 SARS RT PCR (Document "Date of Onset" if Symptomatic) Sent. stephenson 16:54 Flu Sent. stephenson 16:54 No provider procedures requiring assistance completed. Inserted saline lock: 20 gauge stephenson in right forearm, using aseptic technique. 18:04 Urine Microscopic Only Sent. [facility] 19:17 Evin See DO is Referral Physician. ms3 19:40 IV discontinued, intact, bleeding controlled, No redness/swelling at site. Pressure vc1 dressing applied. Administered Medications: 17:59 Drug: Tylenol 1000 mg Route: PO; stephenson 17:59 Follow up: Response: No adverse reaction stephenson Medication: 16:54 VIS not applicable for this client. stephenson Outcome: 19:17 Discharge ordered by . ms3 19:40 Discharged to home ambulatory, with family. vc1 19:40 Condition: good 19:40 Discharge instructions given to patient, family, Instructed on discharge instructions, follow up and referral plans. Demonstrated understanding of instructions, follow-up care. 19:46 Patient left the ED. vc1 Addendum: 04/16/2022 09:17 Addendum: Culture Results: Positive urine culture. Patient was not prescribed i w antibiotics at discharge. Report given to ELIGIO for further evaluation and then to training development manager for follow up with patient. Phone call Attempt #1 pt f/u with her PCP and was started on Nitrofurantoin. Signatures: Dispatcher [employer] EDMS Isak Hopson PA PA [facility] Donis mr Nancy Tolentino, RN RN Carmella Hood RN RN aa5 Nicolas Johnson DO DO ms3 Alva Galloway RN RN Carol Dumont RN RN vc1 Qian Leyva RN RN 1
[2022-04-12 19:53] VITALS: TEMP 99.3
[2022-04-12 19:55] VITALS: BP 141/86; O2SAT 97
--- NOTE | 2022-04-14 08:58 | EKG ---
Test Date: 2022-04-12 Test Time: 16:40:53 Oncology Patient Navigator: HANS MEASUREMENT RESULTS: Intervals: Rate: 111 WV: 172 QRSD: 74 QT: 332 QTc: 451 [place]: P: 85 WV: 172 QRS: 80 T: 74 INTERPRETIVE STATEMENTS: Sinus tachycardia Anterior infarct, age undetermined Abnormal ECG Compared to ECG 05/29/2020 19:49:04 Sinus rhythm no longer present Myocardial infarct finding still present Electronically Signed On 04-14-22 08:55:26 CDT by Romulo Munguia
== END 2022-04-12 19:46 | disposition home or self-care (01) ==
LOC: ER 16:10
DX: R50.9 Fever, unspecified (principal); I10 Essential (primary) hypertension; Z85.118 Personal history of other malignant neoplasm of bronchus and lung; Z20.822 Contact with and (suspected) exposure to COVID-19
CPT/HCPCS: 93005; 87040 ×2; 87088; 85025; 87086; 36415; 87205 ×2; 85610; 83605; 85730; 87077 ×3; 87186 ×3; 81015; 80053; 87804 ×2; 71045; 99284; U0003